=== PATIENT | female | born 1945 | race Caucasian/White ===

== ENCOUNTER 2018-06-19 18:47 | Inpatient (IN) | payer MEDICARE, OTHER ==
[~2018-06-19] VITALS: Ht 167.6 cm; Wt 104.3 kg
--- NOTE | 2018-06-20 02:00 | NUR ---
PT ARRIVED TO FLOOR VIA EMS. PT ONLY RESPONSIVE TO PAINFUL STIMULI. PT IS UNABLE TO ANSWER QUESTIONS. UNABLE TO COMPLETE ADMISSION HISTORY. PT VITALS BP-163/62 P-76 RR-18 O2-95% T-99.9 FSBS-261. BED LOW CALL LIGHT WITHIN REACH. WILL CONTINUE TO MONITOR.
[2018-06-20 03:03] LABS: HEMATOCRIT 36.1 % (36.0-48.0); HEMOGLOBIN 12.2 g/dL (12-16); MCH 28.2 pg (26.0-34.0); MCHC 33.8 g/dL (31.0-37.0); MCV 83.6 fL (80.0-100.0); MEAN PLATELET VOLUME 10.4 fL (7.4-10.4); PLATELET COUNT 257 10x3/uL (130-400); RBC 4.32 10x6/uL (4.00-5.40); RDW 12.6 % (11.5-14.5); WBC 8.8 10x3/uL (4.8-10.8)
--- NOTE | 2018-06-20 03:19 | NUR ---
RN NOTE: PATIENT RESTING COMFORTABLY IN BED. RESPIRATIONS ARE EVEN AND UNLABORED. NO S/S OF DISTRESS. CALL LIGHT WITHIN REACH. WILL CPOC.
[2018-06-20 03:20] LABS: ALBUMIN 2.4 g/dL (3.4-5.0); BILIRUBIN - TOTAL 0.77 mg/dL (0.2-1.3); CALCIUM 8.5 mg/dL (8.5-10.1); CARBON DIOXIDE 23.2 mmol/L (21.0-32.0); POTASSIUM - SERUM 3.2 mmol/L (3.5-5.1); PROTEIN - SERUM 6.5 g/dL (6.4-8.2)
[2018-06-20] MEDS ORDERED: CATAPRES0.1 MG PO (03:45)
[2018-06-20 03:46] VITALS: BP 163/62; BMI 37.2
[2018-06-20] MEDS ORDERED: HYDRALAZINE HCL25 MG (03:47)
[2018-06-20] MEDS ORDERED: CALCIUM 500 +1 EAC3 PO (03:47)
[2018-06-20] MEDS ORDERED: ZYRTEC10 MG PO (03:48)
[2018-06-20] MEDS ORDERED: DETROL LA4 MG PO (03:48)
[2018-06-20] MEDS ORDERED: BASAGLAR K100 UNIT/1 SQ (03:52)
[2018-06-20] MEDS ORDERED: GLUCOPHAGE1000 MG PO (03:53)
[2018-06-20] MEDS ORDERED: K-DUR20 MEQ PO (03:56)
[2018-06-20] MEDS ORDERED: MICARDIS40 MG PO (03:59)
[2018-06-20] MEDS ORDERED: PRAVACHOL40 MG PO (03:59)
[2018-06-20] MEDS ORDERED: ULTRAM50 MG PO (04:01)
[2018-06-20] MEDS ORDERED: HUMALOG 30100 UNITS/ SC (04:02)
--- NOTE | 2018-06-20 05:18 | NUR ---
CALLED DR. SALAS REGARDING PT. PT ONLY RESPONSIVE TO PAINFUL STIMULI AND THEN MOANS. PT UNABLE TO TALK OR ANSWER QUESTIONS. PT RESPIRATIONS SNORING LIKE AT TIMES. PT VITALS STABLE AT THIS TIME. BED LOW CALL LIGHT WITHIN REACH WILL CONTINUE TO MONITOR.
[2018-06-20 05:20] VITALS: BP 132/57
--- NOTE | 2018-06-20 05:27 | NUR ---
CALLED DR. SALAS REGARDING PT. TOLD HIM PT WAS ONLY RESPONSIVE TO PAINFUL STIMULI AND RESPONSE WAS MOANING AND THAT PT COULD NOT ANSWER QUESTIONS OR TALK. RESPIRATIONS SOUND SNORING LIKE AT TIMES. DR. SALAS STATED HE WOULD EVALUATE PT IN MORNING WHEN HE GOT HERE.
--- NOTE | 2018-06-20 07:30 | NUR ---
RECEIVED POSITIONED ON BACK WITH 02 ON VIA N/C AT 2 L/M. RESP SHALLOW BUT EVEN AND UNLABORED. PT IS REPONSIVE ONLY TO PAINFUL STIMULI. MOANS WHEN SHE IS TOUCHED ON LEGS OR RIGHT ARM. DUTTON PATENT AND DRAINING DARK [place] COLORED URINE. BED IN LOWEST POSITION, SIDERAILS UP X 2 AND CALL LIGHT IN REACH. WILL CONTINUE POC
--- NOTE | 2018-06-20 08:50 | NUR ---
X-RAY DONE AT BS. WILL CONT. PLAN OF CARE.
[2018-06-20 09:07] LABS: APTT 25.1 SECONDS (22.8-39.4); INR 1.14 (0.85-1.17); MAGNESIUM - SERUM 1.2 mg/dL (1.8-2.4); PROTIME 14.1 SECONDS (11.6-15.0)
[2018-06-20 09:25] LABS: EOSINOPHILS 1 % (0-7); LYMPHOCYTES 9 % (15-50); MONOCYTES 10 % (2-11); NEUTROPHILS 80 % (40-80); PLATELET ESTIMATE NORMAL; ROULEAUX OCC
--- NOTE | 2018-06-20 10:00 | NUR ---
PT IS NOW WAKING TO HER NAME CALLED. WHEN ASKED HER NAME WILL ANSWER CORRECTLY BUT NO OTHER VERBAL COMMUNICATION. SCOTTIE.
[2018-06-20 11:03] VITALS: BP 137/59
--- NOTE | 2018-06-20 11:30 | NUR ---
HERE AND SIGNED FORM FOR LUMBAR PUNCTURE THIS AFTERNOON.
[2018-06-20 12:14] VITALS: Ht 167.6 cm; Wt 104.3 kg
--- NOTE | 2018-06-20 15:02 | NUR ---
PT OPENS EYES TO NAME NOW. WHEN ASKED IF SHE KNEW WHERE SHE IS WHE ANSWERED [facility] IN [place]. ORIENTED PT TO PLACE. UNABLE TO ANSWER ANY FURTHER QUESTIONS. WHEN HER TOUCHED HER HAND AND TOLD HIM HE WAS THERE, SHE STARTED CRYING BUT QUIETENED QUICKLY. CONTINUE POC,
--- NOTE | 2018-06-20 15:30 | NUR ---
TO IR VIA BED FOR LUMBAR PUNCTURE
[2018-06-20 15:45] VITALS: BP 136/37
--- NOTE | 2018-06-20 16:39 | NUR ---
RETURNED TO ROOM VIA BED. PT IS A/A/OX3. ASKING HOW AND WHY SHE IS HERE AT HOSPITAL. TALKING TO HER AND SMILING. NO REQUESTS.
[2018-06-20 16:53] LABS: ERYTHROCYTE SEDIMENTATION RATE 15 mm/hr (0-30)
[2018-06-20 16:57] LABS: GLUCOSE - CSF 154 MG/DL (40-75); PROTEIN - CSF 47 MG/DL (12-60)
[2018-06-20 17:09] LABS: APPEARANCE - CSF CLEAR; RBC - CSF 1 cmm (0-0)
--- NOTE | 2018-06-20 17:15 | NUR ---
IV INFILTRATED. RIGHT HAND IV DC'D WITH TIP INTACT. RESTARTED IN LEFT HAND X 1 ATTEMPT WITH 22 GAUGE. TOLERATED WELL.
--- NOTE | 2018-06-20 20:30 | NUR ---
RESUMING PT CARE. PT IS LAYING IN BED WITH EYES CLOSED RESTING COMFORTABLY. RESPIRATIONS EVEN AND UNLABORED. BED IN LOWEST POSITION WITH CALL LIGHT IN REACH. SIDE RAILS UP X 2. WILL CONTINUE TO MONITOR PT AND FOLLOW PLAN OF CARE.
[2018-06-20 20:37] VITALS: BP 131/55
[2018-06-21 00:56] VITALS: BP 147/53
--- NOTE | 2018-06-21 03:30 | NUR ---
PT IS LAYING IN BED RESTING COMFORTABLY WITH EYES CLOSED. RESPIRATIONS EVEN AND UNLABORED. NO SIGNS OF DISTRESS. BED IN LOW POSITION WITH CALL LIGHT IN REACH. SIDE RAILS UP X 2. WILL CONTINUE TO MONITOR PT AND FOLLOW PLAN OF CARE.
[2018-06-21 03:49] VITALS: BP 128/47
--- NOTE | 2018-06-21 08:33 | NUR ---
RECIEVED BEDSIDE REPORT. AM ROUNDS COMPLETED. VSS, AAOX2. NO S/S OF RESP DISTRESS, RR UNLABORED. PT STATES SHE WANTS TO SIT UP IN CHAIR, BUT PT IS CONFUSED. OFFERED TO SIT PT UP IN BED. PT STATES SHE IS COMFORTABLE AT THIS TIME. NURSING STUDENTS IN PT ROOM AT THIS TIME. WILL CPOC. CL IN REACH, BED IN LOW.
[2018-06-21 09:15] VITALS: BP 147/59
[2018-06-21 10:09] LABS: APPEARANCE HAZY (CLEAR); BILIRUBIN NEGATIVE (NEGATIVE); COLOR YELLOW (YELLOW); GLUCOSE NEGATIVE (NEGATIVE); KETONE SMALL mg/dL (NEGATIVE); NITRITE NEGATIVE (NEGATIVE); PROTEIN 1+ mg/dL (NEGATIVE); SPECIFIC GRAVITY 1.015 (1.005-1.020); UROBILINOGEN NORMAL (NORMAL); WHITE CELLS - URINE >50 /hpf (0-5)
[2018-06-21 10:10] LABS: BACTERIA FEW /hpf (NONE SEEN); EPITHELIAL CELLS OCC /hpf (0-5); MUCUS <1+ /lpf (NONE SEEN); RED CELLS - URINE OCC /hpf (0-5)
--- NOTE | 2018-06-21 13:00 | NUR ---
NOTIFIED FOOD AND NUTRITION SERVICES SUPERVISOR ABOUT PT NPO STATUS. [facility] PT FOOD AND NUTRITION SERVICES SUPERVISOR STATES PT CAN RESUME REGULAR DIET. VANILLA PUDDING AND DIET COKE GIVEN TO PT AT THIS TIME. WILL CPOC.
--- NOTE | 2018-06-21 15:28 | NUR ---
PT ON SCD. PT STATES UPPER THIGH HURTS A LITTLE. ASSESSED THE AREA. PT DENIES NEEDS FOR PAIN MEDS AT THIS TIME. WILL CTM.
--- NOTE | 2018-06-21 17:35 | MORECARE ---
CASE MANAGEMENT DISCHARGE SUMMARY PATIENT: ELVIRA PADGETT UNIT: [id number] ADM DATE: 06/20/18 AGE: 72 : 43 SEX: F ROOM/BED: D.2101 AUTHOR: RAVINDRA PANDEY PHYSICIAN: REFERRING PHYSICIAN: JUAN SALAS MD DATE OF SERVICE: 06/21/18 Discharge Plan Patient Name: ELVIRA PADGETT Facility[facility] : 1945 Planned Disposition: Home Anticipated Discharge Date: Discharge Date: Expected LOS: Initial Reviewer: [id number] Initial Review Date: 06/20/2018 Generated: 06/21/18 6:35 pm DCPIA - Discharge Planning Initial Assessment Updated by [id number]: Erick Mason on 06/21/18 5:31 pm * Is the patient Alert and Oriented? Yes * How many steps to enter\exit or inside your home? * PCP DR. LEYVA IN [place] * Pharmacy [facility] IN [place] OR [facility] * Preadmission Environment [facility] * Facility Name [facility] [phone] * ADLs Partial Dependent * Partial ADLs (Assistance needed) Ambulation Medication Management Transfers * Equipment Cane Walker * Other Equipment [employer] [facility] IN [place] * List name and contact numbers for known caregivers / representatives who currently or will assist patient after discharge: ANGÉLICA PADGETT, SPOUSE, ANGÉLICA PADGETT, SON, CATALINA PADGETT, DTR, * Verbal permission to speak to the caregivers and representatives has been obtained from the patient. Yes * Community resources currently utilized None * Please name any agencies selected above. NONE * Additional services required to return to the preadmission environment? Yes * Can the patient safely return to the preadmission environment? Yes * Has this patient been hospitalized within the prior 30 days at any hospital? Yes Patient Name: ELVIRA PADGETT Page [id number] at 1738 All edits/amendments must be made on the electronic document DICTATION DATE: 06/21/18 3538 EYE PHYSICIAN: VINCENT 06/21/18 1735 RPT#: [id number] DC DATE: STATUS: ADM IN [facility] [address] [place] [address] END OF REPORT
--- NOTE | 2018-06-21 17:47 | MORECARE ---
CASE MANAGEMENT DISCHARGE SUMMARY PATIENT: ELVIRA PADGETT UNIT: [id number] ADM DATE: 06/20/18 AGE: 72 : 43 SEX: F ROOM/BED: D.2109 AUTHOR: KATHERINDOC PHYSICIAN: REFERRING PHYSICIAN: JUAN SALAS MD DATE OF SERVICE: 06/21/18 Discharge Plan Patient Name: ELVIRA PADGETT Facility: [facility]:[place] : 1945 Planned Disposition: Home Anticipated Discharge Date: Discharge Date: Expected LOS: Initial Reviewer: [email or web address] Initial Review Date: 06/20/2018 Generated: 06/21/18 6:47 pm Comments DCP- Discharge Planning Updated by [id number]: Erick Mason on 06/21/18 4:[address] Patient Name: ELVIRA PADGETT Admission Status: Elective Accout number: [id number] Admission Date: 06-20-2018 : 1945 Admission Diagnosis: Attending: JUAN SALAS Current LOS: 1 Anticipated DC Date: Planned Disposition: Home Primary Insurance: MEDICARE A & B Discharge Planning Comments: CM RECEIVED CALL FROM RENY OF [facility], , WHO LEFT MESSAGE INFORMING THAT PT WAS FROM [facility] AND ASKED FOR UPDATE. CM MET WITH PT AND SPOUSE IN ROOM TO DISCUSS DISCHARGE PLANNING AND NEEDS. ELVIRA PADGETT provided verbal consent to discuss current and ongoing needs with/in the presence of: SPOUSE, ANGÉLICA. PT REPORTS LIVING AT HOME INDEPENDENTLY WITH HER SPOUSE. PT HAS BEEN IN REHAB AT [facility] AND DOES NOT PLAN TO RETURN TO REHAB. PT HAS CANE AND WALKER AT HOME FROM [employer] [employer]. PT HAS NO OUTSIDE SERVICES ASSISTING IN THE HOME. CM DISCUSSED AVAILABILITY OF HOME HEALTH, REHAB SERVICES AND MEDICAL EQUIPMENT. PT DENIES DISCHARGE NEEDS AT THIS TIME, CM ASKED PT IF SHE WAS ABLE TO STAND AND WALK AT THIS TIME, PT DOES NOT THINK SHE CAN. CM EXPLAINED THAT IT MIGHT BE BEST TO KEEP REHAB OPTION OPEN, PT DECLINED AND AGAIN STATES SHE WILL BE GOING HOME AT DISCHARGE. PT'S SPOUSE REPORTS PT IS STILL SICK AND IT IS TOO EARLY TO TELL WHAT PT MIGHT NEED. SPOUSE REPORTS HE WILL BE TAKING PT HOME AT DISCHARGE. PT IS NOT RETURNING TO REHAB AT [facility]. PT PLANS TO DISCHARGE HOME WITH SPOUSE, HAS UNKNOWN DISCHARGE NEEDS AT THIS TIME. CM TO CONTINUE TO FOLLOW AND ASSIST NEEDED. Geochemist: Erick Mason DCPIA - Discharge Planning Initial Assessment Updated by [id number]: Erick Mason on 06/21/18 5:31 pm * Is the patient Alert and Oriented? Yes * How many steps to enter\exit or inside your home? * PCP DR. LEYVA IN [place] * Pharmacy [facility] IN [place] OR [facility] * Preadmission Environment Long-Term Facility * Facility Name [facility] [phone] * ADLs Partial Dependent * Partial ADLs (Assistance needed) Ambulation Medication Management Transfers * Equipment Cane Walker * Other Equipment [employer] [facility] IN [place] * List name and contact numbers for known caregivers / representatives who currently or will assist patient after discharge: ANGÉLICA PADGETT, SPOUSE, ANGÉLICA PADGETT, SON, CATALINA LORIN, DTR, * Verbal permission to speak to the caregivers and representatives has been obtained from the patient. Yes * Community resources currently utilized None * Please name any agencies selected above. NONE * Additional services required to return to the preadmission environment? Yes * Can the patient safely return to the preadmission environment? Yes * Has this patient been hospitalized within the prior 30 days at any hospital? Yes Last DP export: 06/21/18 4:35 p Patient Name: ELVIRA PADGETT Page [id number] at 1747 All edits/amendments must be made on the electronic document DICTATION DATE: 06/21/181745 LAUNDRY OPERATOR WASH ROOM: VINCENT 06/21/181745 RPT#: [id number] ID DATE: STATUS: ADM IN [facility] [address] [place] [address] END OF REPORT
[2018-06-21 20:00] VITALS: BP 156/57
[2018-06-22 00:01] VITALS: BP 195/69
[2018-06-22 04:00] VITALS: BP 144/69
--- NOTE | 2018-06-22 05:22 | NUR ---
ADMINISTRATOR PESTICIDE AT BEDSIDE TO OBTAIN VITALS, CALL LIGHT IN REACH. WILL CONTINUE WITH PLAN OF CARE.
[2018-06-22 05:31] LABS: BASOPHILS 0.5 % (0-2); EOSINOPHILS 2.3 % (0-7); HEMATOCRIT 35.4 % (36.0-48.0); HEMOGLOBIN 11.8 g/dL (12-16); IMMATURE GRANULOCYTES 0.3 % (0-5); LYMPHOCYTES 23.6 % (15-50); MCHC 33.3 g/dL (31.0-37.0); MCV 83.9 fL (80.0-100.0); MONOCYTES 10.9 % (2-11); NEUTROPHILS 62.4 % (40-80); RBC 4.22 10x6/uL (4.00-5.40); RDW 12.7 % (11.5-14.5); WBC 6.2 10x3/uL (4.8-10.8)
[2018-06-22 05:34] LABS: PLATELET COUNT 201 10x3/uL (130-400)
[2018-06-22 05:38] LABS: CALC OSMOLALITY 288 mosm/kg (275-300); CALCIUM 8.5 mg/dL (8.5-10.1); CARBON DIOXIDE 23.6 mmol/L (21.0-32.0); CHLORIDE - SERUM 106 mmol/L (98-107); CREATININE - SERUM 0.7 mg/dL (0.6-1.3); SODIUM 142 mmol/L (136-145); UREA NITROGEN 19 mg/dL (7-18); eGFR NON AFRICAN AMERICAN 87 mL/min (90-120)
[2018-06-22 05:39] LABS: GLUCOSE 174 mg/dL (74-106)
--- NOTE | 2018-06-22 07:40 | NUR ---
PT TALKING TO NO ONE WHEN I ENTERED ROOM. CARYING FULL CONVERSATION, NO ONE ELSE IN ROOM. STATES SHE WASN'T TALKING AT ALL. PT OBVIOUSLY CONFUSED. CL IN REACH. SRX2.
[2018-06-22 08:00] VITALS: BP 192/76
[2018-06-22 11:22] LABS: ANA REFLEX - DIRECT Negative (Negative)
[2018-06-22 11:57] VITALS: BP 202/70
--- NOTE | 2018-06-22 12:27 | NUR ---
REHAB PRESCREENING Rehab referral received and chart reviewed. Work up still in progress pending ID consult and PT evaluation. Patient is still very hypertensive with most recent documented BP 202/70. Rehab will follow for now. Thank you for this referral! Isaura Humphrey, COMPUTER SUPPORT SPECIALIST INSTRUCTOR Rehab [facility]
--- NOTE | 2018-06-22 13:48 | NUR ---
CAN NOT GIVE MICARDIS AT THIS TIME. CALLED [facility] AND THEY SAID THEY WILL BRING IT SOON.
--- NOTE | 2018-06-22 14:25 | NUR ---
PT FAMILY REPORTS THIER HALUCINATIONS HAVE BEEN WORSE. STATES THAT THE PT IS TALKING TO PEOPLE/OBJECTS THAT AREN'T THERE. STATES THAT THIS USALLY MEANS SHE WILL BE GETTING WORSE SOON. WILL LET DR KNOW WHEN HE SEES HER LATER. PT IS PLESANTLY CONFUSED.
[2018-06-22 15:03] VITALS: BP 161/68
--- NOTE | 2018-06-22 15:56 | NUR ---
RESTING QUIETLY EYES CLOSED RESP UNLABORED NAD NOTED AT THIS TIME
--- NOTE | 2018-06-22 16:44 | MORECARE ---
CASE MANAGEMENT DISCHARGE SUMMARY PATIENT: ELVIRA PADGETT UNIT: [id number] ADM DATE: 06/20/18 AGE: 72 : 43 SEX: F ROOM/BED: D.2106 AUTHOR: KATHERINDOC PHYSICIAN: REFERRING PHYSICIAN: JUAN SALAS MD DATE OF SERVICE: 06/22/18 Discharge Plan Patient Name: ELVIRA PADGETT Facility: [facility]:[place] : 1945 Planned Disposition: Inpatient Rehab Anticipated Discharge Date: 06/25/18 Discharge Date: Expected LOS: 5 Initial Reviewer: [email or web address] Initial Review Date: 06/20/2018 Generated: 06/22/18 5:44 pm Comments DCP- Discharge Planning Updated by [id number]: Erick Mason on 06/21/18 4:[address] Patient Name: ELVIRA PADGETT Admission Status: Elective Accout number: [id number] Admission Date: 06-20-2018 : 1945 Admission Diagnosis: Attending: JUAN SALAS Current LOS: 1 Anticipated DC Date: Planned Disposition: Home Primary Insurance: MEDICARE A & B Discharge Planning Comments: CM RECEIVED CALL FROM RENY OF [facility], , WHO LEFT MESSAGE INFORMING THAT PT WAS FROM [facility] AND ASKED FOR UPDATE. CM MET WITH PT AND SPOUSE IN ROOM TO DISCUSS DISCHARGE PLANNING AND NEEDS. ELVIRA PADGETT provided verbal consent to discuss current and ongoing needs with/in the presence of: SPOUSE, ANGÉLICA. PT REPORTS LIVING AT HOME INDEPENDENTLY WITH HER SPOUSE. PT HAS BEEN IN REHAB AT [facility] AND DOES NOT PLAN TO RETURN TO REHAB. PT HAS CANE AND WALKER AT HOME FROM [facility]. PT HAS NO OUTSIDE SERVICES ASSISTING IN THE HOME. CM DISCUSSED AVAILABILITY OF HOME HEALTH, REHAB SERVICES AND MEDICAL EQUIPMENT. PT DENIES DISCHARGE NEEDS AT THIS TIME, CM ASKED PT IF SHE WAS ABLE TO STAND AND WALK AT THIS TIME, PT DOES NOT THINK SHE CAN. CM EXPLAINED THAT IT MIGHT BE BEST TO KEEP REHAB OPTION OPEN, PT DECLINED AND AGAIN STATES SHE WILL BE GOING HOME AT DISCHARGE. PT'S SPOUSE REPORTS PT IS STILL SICK AND IT IS TOO EARLY TO TELL WHAT PT MIGHT NEED. SPOUSE REPORTS HE WILL BE TAKING PT HOME AT DISCHARGE. PT IS NOT RETURNING TO REHAB AT [facility]. PT PLANS TO DISCHARGE HOME WITH SPOUSE, HAS UNKNOWN DISCHARGE NEEDS AT THIS TIME. CM TO CONTINUE TO FOLLOW AND ASSIST NEEDED. Hydrate Thickener Operator: Erick Mason DCPIA - Discharge Planning Initial Assessment Updated by [id number]: Erick Mason on 06/21/18 5:31 pm * Is the patient Alert and Oriented? Yes * How many steps to enter\exit or inside your home? * PCP DR. LEYVA IN [place] * Pharmacy [email or web address] IN [place] OR [facility] * Preadmission Environment [facility] Facility * Facility Name [facility] [phone] * ADLs Partial Dependent * Partial ADLs (Assistance needed) Ambulation Medication Management Transfers * Equipment Cane Walker * Other Equipment [employer] [facility] IN [place] * List name and contact numbers for known caregivers / representatives who currently or will assist patient after discharge: ANGÉLICA PADGETT, SPOUSE, ANGÉLICA PADGETT, SON, CATALINA PADGETT, DTR, * Verbal permission to speak to the caregivers and representatives has been obtained from the patient. Yes * Community resources currently utilized None * Please name any agencies selected above. NONE * Additional services required to return to the preadmission environment? Yes * Can the patient safely return to the preadmission environment? Yes * Has this patient been hospitalized within the prior 30 days at any hospital? Yes External Providers External Provider: OTHER-OTHER Next Contact Date: 06/25/2018 Service Request Date: Service Type: Resolution: Reviewer: Comments: Last DP export: 06/21/18 4:47 p Patient Name: ELVIRA PADGETT Page 29939 at 1644 All edits/amendments must be made on the electronic document DICTATION DATE: 06/22/181643 AIRCRAFT LOADMASTER SUPERINTENDENT: VINCENT 06/22/181643 RPT#: [id number] DC DATE: STATUS: ADM IN [facility] [address] [place] [address] END OF REPORT
--- NOTE | 2018-06-22 16:58 | MORECARE ---
CASE MANAGEMENT DISCHARGE SUMMARY PATIENT: ELVIRA PADGETT UNIT: [id number] ADM DATE: 06/20/18 AGE: 72 : 43 SEX: F ROOM/BED: D.6925 AUTHOR: KATHERIN,DOC PHYSICIAN: REFERRING PHYSICIAN: JUAN SALAS MD DATE OF SERVICE: 06/22/18 Discharge Plan Patient Name: ELVIRA PADGETT Facility: [facility]:[place] : 1945 Planned Disposition: Inpatient Rehab Anticipated Discharge Date: 06/25/18 Discharge Date: Expected LOS: 5 Initial Reviewer: [id number] Initial Review Date: 06/20/2018 Generated: 06/22/18 5:58 pm Comments DCP- Discharge Planning Updated by [id number]: Erick Mason on 06/22/18 3:[address] Patient Name: ELVIRA PADGETT Encounter No: [id number] : 1945 Primary Insurance: MEDICARE A & B Anticipated DC Date: 06-25-2018 Planned Disposition: Inpatient Rehab External Planned Provider: [facility] DCP follow-up note: CM RECEIVED ORDER FOR INPATIENT REHAB PRESCREENING. CM MET WITH PT AND SPOUSE IN ROOM TO DISCUSS DISCHARGE PLANNING AND NEEDS. CM DISCUSSED THERAPY RESULTS, ORDER AND AVAILABILITY OF REHAB PROVIDERS AND LOCATIONS. PT AND SPOUSE WOULD LIKE REFERRAL TO [facility] IN[facility] REH[facility] PT'S HOME IS ABOUT 6 MILES FROM THE FACILITY. PT'S SPOUSE AGAIN VOICED THAT PT IS STILL TOO SICK TO LEAVE AND NEEDS FURTHER TREATMENT. CM EXPLAINED IMPORTANTANCE OF DISCHARGE PLANNING AND PROCESS OF ASSESSMENT BY REHAB. PT AND SPOUSE BOTH IN AGREEMENT WITH REFERRAL TO [facility] IN[facility]IENT RE[facility]. IMPORTANT MESSAGE FROM MEDICARE PROVIDED AND DISCUSSED. CM CALLED [facility], , SPOKE TO THAIS MONTES, WHO INFORMED CM THAT THEY WILL NOT HAVE A DOCTOR AVAILBLE FOR SCREENING UNTIL 06-25-18. CM FAXED REFERRAL FOR REHAB SCREENING TO [phone]. CM WAITING SCREENING AND ADMISSION DETERMINATION FROM [facility] ON 06-25-18. Erick Mason, CASE MANAGEMENT DCP- Discharge Planning Updated by [id number]: Erick Mason on 06/21/18 4:[address] Patient Name: ELVIRA PADGETT Admission Status: Elective Accout number: [id number] Admission Date: 06-20-2018 : 1945 Admission Diagnosis: Attending: JUAN SALAS Current LOS: 1 Anticipated DC Date: Planned Disposition: Home Primary Insurance: MEDICARE A & B Discharge Planning Comments: CM RECEIVED CALL FROM RENY OF [facility], , WHO LEFT MESSAGE INFORMING THAT [facility] AND ASKED FOR UPDATE. CM MET WITH PT AND SPOUSE IN ROOM TO DISCUSS DISCHARGE PLANNING AND NEEDS. ELVIRA PADGETT provided verbal consent to discuss current and ongoing needs with/in the presence of: SPOUSE, ANGÉLICA. PT REPORTS LIVING AT HOME INDEPENDENTLY WITH HER SPOUSE. PT HAS BEEN IN REHAB AT [facility] AND DOES NOT PLAN TO RETURN TO REHAB. PT HAS CANE AND WALKER AT HOME FROM [facility]. PT HAS NO OUTSIDE SERVICES ASSISTING IN THE HOME. CM DISCUSSED AVAILABILITY OF HOME HEALTH, REHAB SERVICES AND MEDICAL EQUIPMENT. PT DENIES DISCHARGE NEEDS AT THIS TIME, CM ASKED PT IF SHE WAS ABLE TO STAND AND WALK AT THIS TIME, PT DOES NOT THINK SHE CAN. CM EXPLAINED THAT IT MIGHT BE BEST TO KEEP REHAB OPTION OPEN, PT DECLINED AND AGAIN STATES SHE WILL BE GOING HOME AT DISCHARGE. PT'S SPOUSE REPORTS PT IS STILL SICK AND IT IS TOO EARLY TO TELL WHAT PT MIGHT NEED. SPOUSE REPORTS HE WILL BE TAKING PT HOME AT DISCHARGE. PT IS NOT RETURNING TO REHAB AT [facility]. PT PLANS TO DISCHARGE HOME WITH SPOUSE, HAS UNKNOWN DISCHARGE NEEDS AT THIS TIME. CM TO CONTINUE TO FOLLOW AND ASSIST NEEDED. Core Manager: Erick Mason DCPIA - Discharge Planning Initial Assessment Updated by [id number]: Erick Mason on 06/21/18 5:31 pm * Is the patient Alert and Oriented? Yes * How many steps to enter\exit or inside your home? * PCP DR. LEYVA IN [place] * Pharmacy [facility] IN [place] OR [facility] * Preadmission Environment Shelter Facility * Facility Name [facility] [place] [phone] * ADLs Partial Dependent * Partial ADLs (Assistance needed) Ambulation Medication Management Transfers * Equipment Cane Walker * Other Equipment [facility] IN [place] * List name and contact numbers for known caregivers / representatives who currently or will assist patient after discharge: ANGÉLICA PADGETT, SPOUSE, ANGÉLICA PADGETT, SON, CATALINA PADGETT, DTR, * Verbal permission to speak to the caregivers and representatives has been obtained from the patient. Yes * Community resources currently utilized None * Please name any agencies selected above. NONE * Additional services required to return to the preadmission environment? Yes * Can the patient safely return to the preadmission environment? Yes * Has this patient been hospitalized within the prior 30 days at any hospital? Yes Coverage Notice Reviewer: [id number] Jay Mason Notice Issued Date-Time: 06/22/2018 15:00 Notice Type: IM Discharge Notice Notice Delivered To: Family Member Relationship to Patient: Spouse Rotary Dryer Operator Name: ANGÉLICA PADGETT Delivery Method: HAND - Hand Delivered Es Days: Prior Verbal Notification: Recipient Understood Notice: Yes Recipient Signature: Yes Med Rec Note Co-signed by Attending: Coverage Notice Comment: Last DP export: 06/22/18 3:44 p Patient Name: ELVIRA PADGETT Page 57256 at 1658 All edits/amendments must be made on the electronic document DICTATION DATE: 06/22/181656 FOOD TRAY ASSEMBLER: VINCENT 06/22/181656 RPT#: [id number] DC DATE: STATUS: ADM IN [facility] [address] [place] [address] END OF REPORT
--- NOTE | 2018-06-22 17:33 | NUR ---
ASSISTED PT TO THE BATHROOM. PT PULLED OUT I/V STATING "IT WAS ON THE WRONG FINGER". PT UNSTEADY GATE, X2 ASSIST. CL IN REACH. SRX2. BED ALARM ON. AT BEDSIDE.
--- NOTE | 2018-06-22 20:55 | NUR ---
RESUMING PT CARE. PT IS ALERT LAYING IN BED WITH NO C/O VOICED AT THIS TIME. IS AT BEDSIDE. BED IN LOW POSITION WITH CALL LIGHT IN REACH. SIDE RAILS UP X 2. WILL CONTINUE TO MONITOR PT AND FOLLOW PLAN OF CARE.
[2018-06-22 22:08] VITALS: BP 154/89
--- NOTE | 2018-06-23 01:30 | NUR ---
PT IS ALERT AND VERY CONFUSED. RESPIRATIONS EVEN AND UNLABORED. NO SIGNS OF DISTRESS. BED IN LOW POSITION WITH CALL LIGHT IN REACH. SIDE RAILS UP X 2. WILL CONTINUE TO MONITOR PT AND FOLLOW PLAN OF CARE.
--- NOTE | 2018-06-23 02:30 | NUR ---
A IV WAS PLACED IN THE RIGHT FOREARM WITH SUCCESS.
[2018-06-23 05:04] LABS: BASOPHILS 0.3 % (0-2); EOSINOPHILS 1.1 % (0-7); HEMATOCRIT 35.2 % (36.0-48.0); HEMOGLOBIN 11.7 g/dL (12-16); IMMATURE GRANULOCYTES 0.2 % (0-5); MCH 27.9 pg (26.0-34.0); MCHC 33.2 g/dL (31.0-37.0); MCV 83.8 fL (80.0-100.0); MEAN PLATELET VOLUME 11.1 fL (7.4-10.4); MONOCYTES 13.5 % (2-11); NEUTROPHILS 62.9 % (40-80); PLATELET COUNT 214 10x3/uL (130-400); RDW 12.8 % (11.5-14.5); WBC 6.1 10x3/uL (4.8-10.8)
[2018-06-23 05:17] LABS: CALCIUM 8.2 mg/dL (8.5-10.1); CARBON DIOXIDE 25.4 mmol/L (21.0-32.0); CHLORIDE - SERUM 105 mmol/L (98-107); CREATININE - SERUM 0.7 mg/dL (0.6-1.3); SODIUM 142 mmol/L (136-145); eGFR NON AFRICAN AMERICAN 87 mL/min (90-120)
[2018-06-23 05:26] LABS: CALC OSMOLALITY 291 mosm/kg (275-300); GLUCOSE 237 mg/dL (74-106); UREA NITROGEN 14 mg/dL (7-18)
[2018-06-23 05:27] LABS: POTASSIUM - SERUM 2.9 mmol/L (3.5-5.1)
--- NOTE | 2018-06-23 05:49 | NUR ---
PT CONFUSED, BUT CURRENTLY IN BED. ROMEL ALARM ON. PT VSS, RR UNLABORED, NO S/S OF DISTRESS. WILL CTM. CL IN REACH, BED IN LOW, SR UP X2. WILL CPOC.
[2018-06-23 07:42] VITALS: BP 169/65
--- NOTE | 2018-06-23 09:42 | NUR ---
CAN HEAR PT YELLING AT FOR SOMEHTHING. WHENT IN, PT VISABLLY UPSET. STATES SHES TIRED OF BEING IN THIS ROOM AND JUST WANTS TO GET OUT OF THE HOSPITAL. TALKED WITH PATIENT, CALMED HER. WILL SEE ABOUT GETTING HER SOMETHING FOR CONFUSION/ANXIETY.
[2018-06-23 11:51] VITALS: BP 183/70
--- NOTE | 2018-06-23 16:00 | NUR ---
PT STATES THAT LAST NIGHT THEIR WERE 4 WOMEN IN HER ROOM SMOKING AND DRINKING. BUT THAT IT WAS FINE, JUST RUDE THEY LEFT THE ROOM A MESS. PT STILL OBVIOUSLY CONFUSED. CL IN REACH. SRX2. BED ALARM ON .
--- NOTE | 2018-06-23 18:06 | NUR ---
PT AT BEDSIDE. HAS YELLED AT FOR "CHEATING" (PT IS OBIOUSLY CONFUSED). UNHAPPY TO BE HERE BUT NOT ENTIRELY UNPLESANT WITH ME IN PARTICULAR. CL IN REACH. SRX2.
[2018-06-23 20:00] VITALS: BP 163/55
--- NOTE | 2018-06-23 20:07 | NUR ---
INITIAL ROUNDS COMPLETED AT 191 HRS. PT DENIED ANY DISCOMFORT. PT ALERT,ORIENTED TO PERSON ONLY. PT ACCUSING OF NOT CARING FOR HER. EMOTIONAL SUPPORT GIVEN. ASSESSMENT COMPLETED AT 1939 HRS. VSS. IV TO RFA SL. LUNGS DIMINISHED IN BASES BILAT. ACTIVE BS IN ALL 4 QUADRANTS. BUTTOCK SLIGHTLY RED. DUTTON DRAINING YELLOW URINE. SPOUSE AT BEDSIDE. SR UP X2, CALL LIGHT WITHIN REACH AND BED ALARM ON.
--- NOTE | 2018-06-23 21:36 | NUR ---
PM [id number]. 2 UNITS REGULAR. INSULIN GIVEN SUB-Q TO UPPER L ARM. 2ND DOSE OF KCL 20 MEQ GIVEN. PT SWALLOWED WITHOUT DIFFICULTY. PT REPOSITIONED IN BED FOR COMFORT. SR UP X2, CALL LIGHT WITHIN REACH.
[2018-06-24] VITALS (7 sets, daily range): BP systolic 146–198; BP diastolic 43–84
--- NOTE | 2018-06-24 00:16 | NUR ---
BP 192/71 PER RETAIL BUSINESS DEVELOPMENT MANAGER. RECHECKED MANUALLY TO L ARM WITH 170/84. PT DENIES ANY DISCOMFORT. SR UP X2, CALL LIGHT WITHIN REACH.
--- NOTE | 2018-06-24 02:27 | NUR ---
PT RESTING WITH EYES CLOSED. RESP EVEN AND REGULAR. SR UP X2, CALL LIGHT WITHIN REACHH AND BED ALARM ON.
[2018-06-24 04:50] LABS: BASOPHILS 0.3 % (0-2); HEMOGLOBIN 11.4 g/dL (12-16); IMMATURE GRANULOCYTES 0.5 % (0-5); LYMPHOCYTES 26.1 % (15-50); MCH 28.1 pg (26.0-34.0); MCHC 33.5 g/dL (31.0-37.0); MEAN PLATELET VOLUME 11.3 fL (7.4-10.4); MONOCYTES 11.3 % (2-11); NEUTROPHILS 59.8 % (40-80); PLATELET COUNT 197 10x3/uL (130-400); RBC 4.05 10x6/uL (4.00-5.40); RDW 12.8 % (11.5-14.5)
[2018-06-24 04:58] LABS: CALC OSMOLALITY 287 mosm/kg (275-300); CALCIUM 8.4 mg/dL (8.5-10.1); CARBON DIOXIDE 24.1 mmol/L (21.0-32.0); CHLORIDE - SERUM 106 mmol/L (98-107); CREATININE - SERUM 0.6 mg/dL (0.6-1.3); GLUCOSE 211 mg/dL (74-106); POTASSIUM - SERUM 3.7 mmol/L (3.5-5.1); SODIUM 142 mmol/L (136-145); UREA NITROGEN 11 mg/dL (7-18); eGFR NON AFRICAN AMERICAN > 90 mL/min (90-120)
--- NOTE | 2018-06-24 06:41 | NUR ---
PT RESTED WELL DURING SHIFT. SR PER CM. DENIED ANY DISCOMFORT. AM FSBS 211. 4 UNITS REG INSULIN GIVEN SUB-Q TO UPPER L ARM PER S/S. NEEDS MET; WILL CONTINUE TO MONITOR.
--- NOTE | 2018-06-24 07:27 | NUR ---
PT ASLEEP, NOT AT BEDSIDE. B/P ELEVATED, WILL TRY AND GET HER PRN B/P MEDS TODAY. CL INREACH. SRX2. ROMEL ALARM ON.
--- NOTE | 2018-06-24 09:58 | NUR ---
RESTS IN BED WITH EYES CLOSED. CALL LIGHT IN REACH. WILL MONITOR NEEDS.
--- NOTE | 2018-06-24 18:39 | NUR ---
PT ON COMMODE. AT BEDSIDE. WILL USE BATHROOM CL WHEN NEEDED. WILL ASSIST BACK TO BED. CL IN REACH. SRX2.
--- NOTE | 2018-06-24 19:30 | NUR ---
INITIAL ROUNDS COMPLETED. NO DISTRESS NOTED. SPOUSE AT BEDSIDE. BLADDER TRAINING INITIATED. CALL LIGHT WITHIN REACH.
--- NOTE | 2018-06-24 21:43 | NUR ---
ASSESSMENT COMPLETED AT 1950 HRS. VSS. SR PER CM HR 61. PT ALERT AND ORIENTED TO PERSON,PLACE. REORIENTED TO TIME AND SITUATION. LUNGS DIMINISHED IN BASES BILAT. IV TO RFA SL. [place]. BUTTOCKS SLIGHTLY RED. PM MED GIVEN. PM FSBS 215. 4 UNITS REG INSULIN GOVEN SUB-Q TO UPPER L ARM. PM SNACK SERVED. DUTTON UNCLAMPED AT THAT TIME. PT CURRENTLY WATCHING TV. SR UP X2,CALL LIGHT WITHIN REACH AND BED ALARM ON.
--- NOTE | 2018-06-25 00:42 | NUR ---
DUTTON CLAMPED AT THIS TIME. ASSSITED TO BR. FLATUS NOTED. BED LINENS CHANGED. ASSISTED BACK TO BED. GAIT EVEN AND REGULAR. SR UP X2, CALL LIGHT WITHIN REACH AND BED ALARM.
[2018-06-25 01:24] VITALS: BP 165/69
--- NOTE | 2018-06-25 02:20 | NUR ---
PT AWAKE; DENIES ANY DISCOMFORT. DUTTON UNCLAMPED AT THIS TIME. CALL LIGHT WITHIN REACH.
--- NOTE | 2018-06-25 04:12 | NUR ---
PT RESTING WITH EYES CLOSED. RESP EVEN AND REGULAR. SR UP X2, CALL LIGHT WITHIN REACH.
[2018-06-25 05:02] VITALS: BP 123/51
--- NOTE | 2018-06-25 05:16 | NUR ---
PT DID NOT MEET CRITERIA FOR DUTTON AND PT REQUESTS TO HAVE IT REMOVED. NATO DC'D WITHOUT PROBLEMS. WILL CONTINUE TO MONITOR.
--- NOTE | 2018-06-25 06:16 | NUR ---
VSS THROUGHOUT NIGHT. PT DENIED ANY DISCOMFORT. NEEDS MET; WILL CONTINUE TO MONITOR.
[2018-06-25 06:37] LABS: CALC OSMOLALITY 288 mosm/kg (275-300); CALCIUM 8.5 mg/dL (8.5-10.1); CARBON DIOXIDE 21.8 mmol/L (21.0-32.0); CHLORIDE - SERUM 106 mmol/L (98-107); CREATININE - SERUM 0.7 mg/dL (0.6-1.3); GLUCOSE 229 mg/dL (74-106); SODIUM 142 mmol/L (136-145); UREA NITROGEN 10 mg/dL (7-18); eGFR NON AFRICAN AMERICAN 87 mL/min (90-120)
[2018-06-25 07:03] VITALS: BP 186/66
[2018-06-25 08:00] LABS: BASOPHILS 0.4 % (0-2); EOSINOPHILS 2.8 % (0-7); HEMATOCRIT 34.4 % (36.0-48.0); HEMOGLOBIN 11.2 g/dL (12-16); IMMATURE GRANULOCYTES 0.5 % (0-5); LYMPHOCYTES 23.1 % (15-50); MCH 27.8 pg (26.0-34.0); MCHC 32.6 g/dL (31.0-37.0); MCV 85.4 fL (80.0-100.0); MONOCYTES 10.5 % (2-11); NEUTROPHILS 62.7 % (40-80); PLATELET COUNT 249 10x3/uL (130-400); RBC 4.03 10x6/uL (4.00-5.40); WBC 7.8 10x3/uL (4.8-10.8)
--- NOTE | 2018-06-25 08:16 | NUR ---
ROUNDING DONE WITH PATIENT LAYING ON LEFT SIDE. WHEN AROUSED TO INTRODUCE MYSELF SHE REPLIED, YEAH AND WENT BACK TO SLEEP. ON HEART MONITOR SHOWINING SR, HR 62. RIGHT FA PIV SEEN WITH SALINE LOCK. ON EP, K+ IS 3.0, WILL COVER WITH SUPPLEMENTS. AT BEDSIDE AND WONDERING WHEN DISCHARGE WILL BE.
--- NOTE | 2018-06-25 08:24 | NUR ---
POTASSIUM GIVEN PER PROTOCOL. WILL ORDER RE-DRAW.
--- NOTE | 2018-06-25 10:11 | MORECARE ---
CASE MANAGEMENT DISCHARGE SUMMARY PATIENT: ELVIRA PADGETT UNIT: [id number] ADM DATE: 06/20/18 AGE: 72 : 43 SEX: F ROOM/BED: D.2105 AUTHOR: KATHERINDOC PHYSICIAN: REFERRING PHYSICIAN: JUAN SALAS MD DATE OF SERVICE: 06/25/18 Discharge Plan Patient Name: ELVIRA PADGETT Facility: [facility]:[place] : 1945 Planned Disposition: Inpatient Rehab Anticipated Discharge Date: 06/25/18 Discharge Date: Expected LOS: 5 Initial Reviewer: [id number] Initial Review Date: 06/20/2018 Generated: 06/25/18 11:11 am Comments DCP- Discharge Planning Updated by [id number]: Erick Mason on 06/25/18 9:[address] Patient Name: ELVIRA PADGETT Admission Status: Elective Accout number: [id number] Admission Date: 06-20-2018 : 1945 Admission Diagnosis: Attending: JUAN SALAS Current LOS: 5 Anticipated DC Date: 06-25-2018 Planned Disposition: Inpatient Rehab Primary Insurance: MEDICARE A & B PLANNED EXTERNAL PROVIDER: [facility] INPATIENT [facility] DCP follow-up note: CM FAXED REFERRAL UPDATE FOR REHAB SCREENING TO [phone]. CM WAITING SCREENING AND ADMISSION DETERMINATION FROM [facility] INPATIENT REH[facility]. SOFY Zhang DCP- Discharge Planning Updated by [id number]: Erick Mason on 06/22/18 3:[address] Patient Name: ELVIRA PADGETT Encounter No: [id number] : 1945 Primary Insurance: MEDICARE A & B Anticipated DC Date: 06-25-2018 Planned Disposition: Inpatient Rehab External Planned Provider: [facility] INPATIENT REH[facility] DCP follow-up note: CM RECEIVED ORDER FOR INPATIENT REHAB PRESCREENING. CM MET WITH PT AND SPOUSE IN ROOM TO DISCUSS DISCHARGE PLANNING AND NEEDS. CM DISCUSSED THERAPY RESULTS, ORDER AND AVAILABILITY OF REHAB PROVIDERS AND LOCATIONS. PT AND SPOUSE WOULD LIKE REFERRAL TO [facility] INPATIENT REH[facility] PT'S HOME IS ABOUT 6 [address] FROM THE FACILITY. PT'S SPOUSE AGAIN VOICED THAT PT IS STILL TOO SICK TO LEAVE AND NEEDS FURTHER TREATMENT. CM EXPLAINED IMPORTANTANCE OF DISCHARGE PLANNING AND PROCESS OF ASSESSMENT BY REHAB. PT AND SPOUSE BOTH IN AGREEMENT WITH REFERRAL TO [facility] INPATIENT REH[facility]. IMPORTANT MESSAGE FROM MEDICARE PROVIDED AND DISCUSSED. CM CALLED [facility] INPATIENT [facility], , SPOKE TO THAIS MONTES, WHO INFORMED CM THAT THEY WILL NOT HAVE A DOCTOR AVAILBLE FOR SCREENING UNTIL 06-25-18. CM FAXED REFERRAL FOR REHAB SCREENING TO [phone]. CM WAITING SCREENING AND ADMISSION DETERMINATION FROM [facility] REHAB ON 06-25-18. Erick Mason, CASE MANAGEMENT DCP- Discharge Planning Updated by [id number]: Erick Mason on 06/21/18 4:[address] Patient Name: ELVIRA PADGETT Admission Status: Elective Accout number: [id number] Admission Date: 06-20-2018 : 1945 Admission Diagnosis: Attending: JUAN SALAS Current LOS: 1 Anticipated DC Date: Planned Disposition: Home Primary Insurance: MEDICARE A & B Discharge Planning Comments: CM RECEIVED CALL FROM RENY OF [facility], , WHO LEFT MESSAGE INFORMING THAT PT WAS FROM [facility] AND ASKED FOR UPDATE. CM MET WITH PT AND SPOUSE IN ROOM TO DISCUSS DISCHARGE PLANNING AND NEEDS. ELVIRA PADGETT provided verbal consent to discuss current and ongoing needs with/in the presence of: SPOUSE, ANGÉLICA. PT REPORTS LIVING AT HOME INDEPENDENTLY WITH HER SPOUSE. PT HAS BEEN IN REHAB AT [facility] AND DOES NOT PLAN TO RETURN TO REHAB. PT HAS CANE AND WALKER AT HOME FROM [facility]. PT HAS NO OUTSIDE SERVICES ASSISTING IN THE HOME. CM DISCUSSED AVAILABILITY OF HOME HEALTH, REHAB SERVICES AND MEDICAL EQUIPMENT. PT DENIES DISCHARGE NEEDS AT THIS TIME, CM ASKED PT IF SHE WAS ABLE TO STAND AND WALK AT THIS TIME, PT DOES NOT THINK SHE CAN. CM EXPLAINED THAT IT MIGHT BE BEST TO KEEP REHAB OPTION OPEN, PT DECLINED AND AGAIN STATES SHE WILL BE GOING HOME AT DISCHARGE. PT'S SPOUSE REPORTS PT IS STILL SICK AND IT IS TOO EARLY TO TELL WHAT PT MIGHT NEED. SPOUSE REPORTS HE WILL BE TAKING PT HOME AT DISCHARGE. PT IS NOT RETURNING TO REHAB AT [facility]. PT PLANS TO DISCHARGE HOME WITH SPOUSE, HAS UNKNOWN DISCHARGE NEEDS AT THIS TIME. CM TO CONTINUE TO FOLLOW AND ASSIST NEEDED. Cargo Trimmer: Erick Mason DCPIA - Discharge Planning Initial Assessment Updated by [id number]: Erick Mason on 06/21/18 5:31 pm * Is the patient Alert and Oriented? Yes * How many steps to enter\exit or inside your home? * PCP DR. LEYVA IN [place] * Pharmacy [facility] IN [place] OR [facility] * Preadmission Environment [facility] Facility * Facility Name [facility] [phone] * ADLs Partial Dependent * Partial ADLs (Assistance needed) Ambulation Medication Management Transfers * Equipment Cane Walker * Other Equipment [facility] [place] * List name and contact numbers for known caregivers / representatives who currently or will assist patient after discharge: ANGÉLICA PADGETT, SPOUSE, ANGÉLICA PADGETT, SON, CATALINANILS MCCOYON, DTR, * Verbal permission to speak to the caregivers and representatives has been obtained from the patient. Yes * Community resources currently utilized None * Please name any agencies selected above. NONE * Additional services required to return to the preadmission environment? Yes * Can the patient safely return to the preadmission environment? Yes * Has this patient been hospitalized within the prior 30 days at any hospital? Yes Coverage Notice Reviewer: [id number] - Erick Mason Notice Issued Date-Time: 06/22/2018 15:00 Notice Type: IM Discharge Notice Notice Delivered To: Family Member Relationship to Patient: Spouse Store Hand Name: ANGÉLICA PADGETT Delivery Method: HAND - Hand Delivered Es Days: Prior Verbal Notification: Recipient Understood Notice: Yes Recipient Signature: Yes Med Rec Note Co-signed by Attending: Coverage Notice Comment: Last DP export: 06/22/18 3:58 p Patient Name: ELVIRA PADGETT Page 24662 at 1011 All edits/amendments must be made on the electronic document DICTATION DATE: 06/25/18 1011 TRACTOR SWEEPER OPERATOR: VINCENT 06/25/18 1011 RPT#: [id number] DC DATE: STATUS: ADM IN [facility] [address] [place] [address] END OF REPORT
--- NOTE | 2018-06-25 10:57 | NUR ---
ASSIT X 2 TO RESTROOM. PATIENT STATES THAT SHE CAN DO IT HERSELF BUT GAIT IS A LITTLE UNSTEADY. ASKED HER TO US THE EMERGENCY LIGHT FOR ASSIT BACK TO BED, STATES TO UNDERSTANDING.
--- NOTE | 2018-06-25 12:29 | NUR ---
SITTING ON SIDE OF BED EATING LUNCH. DENIES NEEDS AT THIS TIME.
[2018-06-25 12:53] VITALS: BP 142/69
--- NOTE | 2018-06-25 13:09 | NUR ---
RE-DRAW OF K+ IS 3.4. I WENT TO COVER WITH ADDITIONAL POTASSIUM SUPPLEMENTS AND THE PATIENT ASKED THAT I COME BACK IN ABOUT 10 MIN.
--- NOTE | 2018-06-25 15:32 | NUR ---
PAGE INTO KAREN LE[facility]ITT APN.
--- NOTE | 2018-06-25 16:49 | MORECARE ---
CASE MANAGEMENT DISCHARGE SUMMARY PATIENT: ELVIRA PADGETT UNIT: [id number] ADM DATE: 06/20/18 AGE: 72 : 43 SEX: F ROOM/BED: D.2105 AUTHOR: KATHERINDOC PHYSICIAN: REFERRING PHYSICIAN: JUAN SALAS MD DATE OF SERVICE: 06/25/18 Discharge Plan Patient Name: ELVIRA PADGETT Facility: [facility]:[place] : 1945 Planned Disposition: Home with Home Health Anticipated Discharge Date: 06/25/18 Discharge Date: Expected LOS: 5 Initial Reviewer: [id number] Initial Review Date: 06/20/2018 Generated: 06/25/18 5:48 pm Comments DCP- Discharge Planning Updated by [id number]: Erick Mason on 06/25/18 9:[address] Patient Name: ELVIRA PADGETT Admission Status: Elective Accout number: [id number] Admission Date: 06-20-2018 : 1945 Admission Diagnosis: Attending: JUAN SALAS Current LOS: 5 Anticipated DC Date: 06-25-2018 Planned Disposition: Inpatient Rehab Primary Insurance: MEDICARE A & B PLANNED EXTERNAL PROVIDER: [facility] INPATIENT REHAB DCP follow-up note: CM FAXED REFERRAL UPDATE FOR REHAB SCREENING TO [phone]. CM WAITING SCREENING AND ADMISSION DETERMINATION FROM [facility] INPATIENT REHAB. SOFY Zhang DCP- Discharge Planning Updated by [id number]: Erick Mason on 06/22/18 3:[address] Patient Name: ELVIRA PADGETT Encounter No: [id number] : 1945 Primary Insurance: MEDICARE A & B Anticipated DC Date: 06-25-2018 Planned Disposition: Inpatient Rehab External Planned Provider: [facility] INPATIENT REH[facility] DCP follow-up note: CM RECEIVED ORDER FOR INPATIENT REHAB PRESCREENING. CM MET WITH PT AND SPOUSE IN ROOM TO DISCUSS DISCHARGE PLANNING AND NEEDS. CM DISCUSSED THERAPY RESULTS, ORDER AND AVAILABILITY OF REHAB PROVIDERS AND LOCATIONS. PT AND SPOUSE WOULD LIKE REFERRAL TO [facility] INPATIENT REHAB PT'S HOME IS ABOUT 6 MILES FROM THE FACILITY. PT'S SPOUSE AGAIN VOICED THAT PT IS STILL TOO SICK TO LEAVE AND NEEDS FURTHER TREATMENT. CM EXPLAINED IMPORTANTANCE OF DISCHARGE PLANNING AND PROCESS OF ASSESSMENT BY REHAB. PT AND SPOUSE BOTH IN AGREEMENT WITH REFERRAL TO [facility] INPATIENT REHAB. IMPORTANT MESSAGE FROM MEDICARE PROVIDED AND DISCUSSED. CM CALLED [facility] INPATIENT RE[facility], , SPOKE TO THAIS MONTES, WHO INFORMED CM THAT THEY WILL NOT HAVE A DOCTOR AVAILBLE FOR SCREENING UNTIL 06-25-18. CM FAXED REFERRAL FOR REHAB SCREENING TO [phone]. CM WAITING SCREENING AND ADMISSION DETERMINATION FROM [facility] INPATIENT REHAB ON 06-25-18. Erick Mason, CASE MANAGEMENT DCP- Discharge Planning Updated by [id number]: Erick Mason on 06/21/18 4:[address] Patient Name: ELVIRA PADGETT Admission Status: Elective Accout number: [id number] Admission Date: 06-20-2018 : 1945 Admission Diagnosis: Attending: JUAN SALAS Current LOS: 1 Anticipated DC Date: Planned Disposition: Home Primary Insurance: MEDICARE A & B Discharge Planning Comments: CM RECEIVED CALL FROM RENY OF [facility], , WHO LEFT MESSAGE INFORMING THAT PT WAS FROM [facility] AND ASKED FOR UPDATE. CM MET WITH PT AND SPOUSE IN ROOM TO DISCUSS DISCHARGE PLANNING AND NEEDS. ELVIRA PADGETT provided verbal consent to discuss current and ongoing needs with/in the presence of: SPOUSE, ANGÉLICA. PT REPORTS LIVING AT HOME INDEPENDENTLY WITH HER SPOUSE. PT HAS BEEN IN REHAB AT [facility] AND DOES NOT PLAN TO RETURN TO REHAB. PT HAS CANE AND WALKER AT HOME FROM [place] [employer]. PT HAS NO OUTSIDE SERVICES ASSISTING IN THE HOME. CM DISCUSSED AVAILABILITY OF HOME HEALTH, REHAB SERVICES AND MEDICAL EQUIPMENT. PT DENIES DISCHARGE NEEDS AT THIS TIME, CM ASKED PT IF SHE WAS ABLE TO STAND AND WALK AT THIS TIME, PT DOES NOT THINK SHE CAN. CM EXPLAINED THAT IT MIGHT BE BEST TO KEEP REHAB OPTION OPEN, PT DECLINED AND AGAIN STATES SHE WILL BE GOING HOME AT DISCHARGE. PT'S SPOUSE REPORTS PT IS STILL SICK AND IT IS TOO EARLY TO TELL WHAT PT MIGHT NEED. SPOUSE REPORTS HE WILL BE TAKING PT HOME AT DISCHARGE. PT IS NOT RETURNING TO REHAB AT [facility]. PT PLANS TO DISCHARGE HOME WITH SPOUSE, HAS UNKNOWN DISCHARGE NEEDS AT THIS TIME. CM TO CONTINUE TO FOLLOW AND ASSIST NEEDED. Tongue Carrier: Erick Mason DCPIA - Discharge Planning Initial Assessment Updated by [email or web address]: Erick Mason on 06/21/18 5:31 pm * Is the patient Alert and Oriented? Yes * How many steps to enter\exit or inside your home? * PCP DR. LEYVA IN [place] * Pharmacy [facility] IN [place] OR [facility] * Preadmission Environment [facility] Facility * Facility Name [facility] [phone] * ADLs Partial Dependent * Partial ADLs (Assistance needed) Ambulation Medication Management Transfers * Equipment Cane Walker * Other Equipment [facility] [place] * List name and contact numbers for known caregivers / representatives who currently or will assist patient after discharge: ANGÉLICA PADGETT, SPOUSE, ANGÉLICA PADGETT, SON, CATALINANILS MCCOYON, DTR, * Verbal permission to speak to the caregivers and representatives has been obtained from the patient. Yes * Community resources currently utilized None * Please name any agencies selected above. NONE * Additional services required to return to the preadmission environment? Yes * Can the patient safely return to the preadmission environment? Yes * Has this patient been hospitalized within the prior 30 days at any hospital? Yes Coverage Notice Reviewer: [id number] - Erick Mason Notice Issued Date-Time: 06/22/2018 15:00 Notice Type: IM Discharge Notice Notice Delivered To: Family Member Relationship to Patient: Spouse Team Leader/Research Psychologist Name: ANGÉLICA PADGETT Delivery Method: HAND - Hand Delivered Es Days: Prior Verbal Notification: Recipient Understood Notice: Yes Recipient Signature: Yes Med Rec Note Co-signed by Attending: Coverage Notice Comment: Last DP export: 06/25/18 9:11 a Patient Name: ELVIRA PADGETT Page 26154 at 1649 All edits/amendments must be made on the electronic document DICTATION DATE: 06/25/181647 SOFT DRINK POWDER MIXER: VINCENT 06/25/181647 RPT#: [id number] DC DATE: STATUS: ADM IN [facility] [address] [place] [address] END OF REPORT
--- NOTE | 2018-06-25 17:04 | MORECARE ---
CASE MANAGEMENT DISCHARGE SUMMARY PATIENT: ELVIRA PADGETT UNIT: [id number] ADM DATE: 06/20/18 AGE: 72 : 43 SEX: F ROOM/BED: D.8776 AUTHOR: KATHERIN,DOC PHYSICIAN: REFERRING PHYSICIAN: JUAN SALAS MD DATE OF SERVICE: 06/25/18 Discharge Plan Patient Name: ELVIRA PADGETT Facility: [facility]:[place] : 1945 Planned Disposition: Home with Home Health Anticipated Discharge Date: 06/25/18 Discharge Date: Expected LOS: 5 Initial Reviewer: [id number] Initial Review Date: 06/20/2018 Generated: 06/25/18 6:03 pm Comments DCP- Discharge Planning Updated by [id number]: Erick Mason on 06/25/18 3:[address] Patient Name: ELVIRA PADGETT Encounter No: [id number] : 1945 Primary Insurance: MEDICARE A & B Anticipated DC Date: 06-25-2018 Planned Disposition: Home with Home Health External Planned Provider: TO BE DETERMINED DCP follow-up note: MAYI SPOKE TO MJ OF [facility] INPATIENT REH[facility]. INFORMED CM THAT SHE HAS SCREENED PT WHO SEEMS "WIPED OUT" AFTER WALKING IN THE [place] WITH THERAPY TODAY, PT'S SPOUSE DOES NOT THINK PT CAN PARTICIPATE IN THREE HOURS OF THERAPY PER DAY AND PLANS TO TAKE PT HOME AT DISCHARGE. REPORTED THAT PT'S SPOUSE WANTS TO SPEAK TO THE DOCTOR BEFORE MAKING ANY FURTHER DECISIONS. STATES THAT IF PT CAN PARTICIPATE IN THREE HOURS OF PROGRESSIVE THERAPY AND DECIDES SHE WANTS TO SCREEN FOR ADMISSION TO REHAB, TO PLEASE LET THEM KNOW. CM SPOKE TO PT IN ROOM. PT'S SPOUSE WAS NOT PRESENT. CM DISCUSSED ABOVE INFORMATION. PT REPORTS SHE WAS SLEEPING FOR MOST OF THE SCREENERS VISIT. SHE DOES NOT KNOW WHAT HER TOLD THE SCREENER BUT PT IS NOT SURE IF HE IS GOING TO BE ABLE TO LIFT HER AND TO ASSIST HER MUCH SHE NEEDS AT HOME. PT DOES NOT WANT TO GO TO [facility] BUT REPORTS SHE DOES NOT THINK THAT SHE HERSELF CAN DO THREE HOURS OF REQUIRED THERAPY PER DAY IN THE INPATIENT REHAB. CM DISCUSSED AVAILABILITY OF REHAB SERVICES, HOME HEALTH AND MEDICAL EQUIPMENT. CM EXPLAINED THAT MAYBE PT'S SPOUSE COULD ATTEMPT TO ASSIST PT IN ROOM WITH TRANSFER WHILE THERAPY WAS PRESENT TO TEST AND SEE IF GOING HOME WITH SPOUSE'S ASSISTANCE IS AN OPTION. PT WILL DISCUSS THIS WITH HER SPOUSE. PT WOULD LIKE TO DISCUSS DISCHARGE PLAN WITH HER SPOUSE AND WILL LET CM KNOW WHAT THEY WOULD LIKE TO DO. PT AND PT'S SPOUSE HAVE DECLINED [facility] RE[facility]AB RETURN. PT'S SPOUSE DECLINED INPATIENT REHAB AT [facility]. PT'S SPOUSE WANTS TO SPEAK TO THE DOCTOR BEFORE MAKING ANY FURTHER DISCHARGE PLANNING DECISIONS. PT'S SPOUSE HAS STATED HE WILL BE TAKING PT HOME AT DISCHARGE. CM HAS OFFERED HOME HEALTH SERVICES. CM WAITING PT AND HER SPOUSE TO DISCUSS DISCHARGE PLAN AND NOTIFY CM OF NEEDS. Erick Mason CASE MANAGEMENT DCP- Discharge Planning Updated by [id number]: Erick Mason on 06/25/18 9:[address] Patient Name: ELVIRA PADGETT Admission Status: Elective Accout number: [id number] Admission Date: 06-20-2018 : 1945 Admission Diagnosis: Attending: JUAN SALAS Current LOS: 5 Anticipated DC Date: 06-25-2018 Planned Disposition: Inpatient Rehab Primary Insurance: MEDICARE A & B PLANNED EXTERNAL PROVIDER: [facility] INPATIENT REH[facility] DCP follow-up note: CM FAXED REFERRAL UPDATE FOR REHAB SCREENING TO [phone]. CM WAITING SCREENING AND ADMISSION DETERMINATION FROM [facility] INPATIENT REHAB. SOFY Zhang DCP- Discharge Planning Updated by [id number]: Erick Mason on 06/22/18 3:[address] Patient Name: ELVIRA PADGETT Encounter No: [id number] : 1945 Primary Insurance: MEDICARE A & B Anticipated DC Date: 06-25-2018 Planned Disposition: Inpatient Rehab External Planned Provider: [facility] INPATIENT REH[facility] DCP follow-up note: CM RECEIVED ORDER FOR INPATIENT REHAB PRESCREENING. CM MET WITH PT AND SPOUSE IN ROOM TO DISCUSS DISCHARGE PLANNING AND NEEDS. CM DISCUSSED THERAPY RESULTS, ORDER AND AVAILABILITY OF REHAB PROVIDERS AND LOCATIONS. PT AND SPOUSE WOULD LIKE REFERRAL TO [facility] INPATIENT REHAB PT'S HOME IS ABOUT 6 MILES FROM THE FACILITY. PT'S SPOUSE AGAIN VOICED THAT PT IS STILL TOO SICK TO LEAVE AND NEEDS FURTHER TREATMENT. CM EXPLAINED IMPORTANTANCE OF DISCHARGE PLANNING AND PROCESS OF ASSESSMENT BY REHAB. PT AND SPOUSE BOTH IN AGREEMENT WITH REFERRAL TO [facility] INPATIENT REHAB. IMPORTANT MESSAGE FROM MEDICARE PROVIDED AND DISCUSSED. CM CALLED [facility] INPATIENT REH[facility], , SPOKE TO THAIS MONTES, WHO INFORMED CM THAT THEY WILL NOT HAVE A DOCTOR AVAILBLE FOR SCREENING UNTIL 06-25-18. CM FAXED REFERRAL FOR REHAB SCREENING TO [phone]. CM WAITING SCREENING AND ADMISSION DETERMINATION FROM [facility] REHAB ON 06-25-18. Erick Mason, CASE MANAGEMENT DCP- Discharge Planning Updated by [id number]: Erick Mason on 06/21/18 4:[address] Patient Name: ELVIRA PADGETT Admission Status: Elective Accout number: [id number] Admission Date: 06-20-2018 : 1945 Admission Diagnosis: Attending: JUAN SALAS Current LOS: 1 Anticipated DC Date: Planned Disposition: Home Primary Insurance: MEDICARE A & B Discharge Planning Comments: CM RECEIVED CALL FROM RENY OF [facility], , WHO LEFT MESSAGE INFORMING THAT PT WAS FROM [facility] AND ASKED FOR UPDATE. CM MET WITH PT AND SPOUSE IN ROOM TO DISCUSS DISCHARGE PLANNING AND NEEDS. ELVIRA PADGETT provided verbal consent to discuss current and ongoing needs with/in the presence of: SPOUSE, ANGÉLICA. PT REPORTS LIVING AT HOME INDEPENDENTLY WITH HER SPOUSE. PT HAS BEEN IN REHAB AT [facility] AND DOES NOT PLAN TO RETURN TO REHAB. PT HAS CANE AND WALKER AT HOME FROM [place] [employer]. PT HAS NO OUTSIDE SERVICES ASSISTING IN THE HOME. CM DISCUSSED AVAILABILITY OF HOME HEALTH, REHAB SERVICES AND MEDICAL EQUIPMENT. PT DENIES DISCHARGE NEEDS AT THIS TIME, CM ASKED PT IF SHE WAS ABLE TO STAND AND WALK AT THIS TIME, PT DOES NOT THINK SHE CAN. CM EXPLAINED THAT IT MIGHT BE BEST TO KEEP REHAB OPTION OPEN, PT DECLINED AND AGAIN STATES SHE WILL BE GOING HOME AT DISCHARGE. PT'S SPOUSE REPORTS PT IS STILL SICK AND IT IS TOO EARLY TO TELL WHAT PT MIGHT NEED. SPOUSE REPORTS HE WILL BE TAKING PT HOME AT DISCHARGE. PT IS NOT RETURNING TO REHAB AT [facility]. PT PLANS TO DISCHARGE HOME WITH SPOUSE, HAS UNKNOWN DISCHARGE NEEDS AT THIS TIME. CM TO CONTINUE TO FOLLOW AND ASSIST NEEDED. Stand Up Forklift Operator: Erick Mason DCPIA - Discharge Planning Initial Assessment Updated by [id number]: Erick Mason on 06/21/18 5:31 pm * Is the patient Alert and Oriented? Yes * How many steps to enter\\exit or inside your home? * PCP DR. LEYVA IN [place] * Pharmacy [facility] IN [place] OR [facility] * Preadmission Environment Long-Term Facility * Facility Name [facility] [phone] * ADLs Partial Dependent * Partial ADLs (Assistance needed) Ambulation Medication Management Transfers * Equipment Cane Walker * Other Equipment [facility] [place] * List name and contact numbers for known caregivers / representatives who currently or will assist patient after discharge: ANGÉLICA PADGETT, SPOUSE, ANGÉLICA PADGETT, SON, CATALINA PADGETT, DTR, * Verbal permission to speak to the caregivers and representatives has been obtained from the patient. Yes * Community resources currently utilized None * Please name any agencies selected above. NONE * Additional services required to return to the preadmission environment? Yes * Can the patient safely return to the preadmission environment? Yes * Has this patient been hospitalized within the prior 30 days at any hospital? Yes Coverage Notice Reviewer: [id number] - Erick Mason Notice Issued Date-Time: 06/22/2018 15:00 Notice Type: IM Discharge Notice Notice Delivered To: Family Member Relationship to Patient: Spouse Sales Data Analyst Name: ANGÉLICA PADGETT Delivery Method: HAND - Hand Delivered Es Days: Prior Verbal Notification: Recipient Understood Notice: Yes Recipient Signature: Yes Med Rec Note Co-signed by Attending: Coverage Notice Comment: Last DP export: 06/25/18 3:49 p Patient Name: ELVIRA PADGETT Page 87774 at 1704 All edits/amendments must be made on the electronic document DICTATION DATE: 06/25/181702 STEREOTYPER HELPER: VINCENT 06/25/181702 RPT#: [id number] DC DATE: STATUS: ADM IN [facility] [address] [place] [address] END OF REPORT
[2018-06-25 17:08] LABS: ANCA - ANTIMYELOPEROXIDASE <9.0 U/mL (0.0-9.0); ANCA - ANTIPROTEINASE 3 <3.5 U/mL (0.0-3.5); ANCA - ATYPICAL <1:20 titer (Neg:<1:20); ANCA - CYTOPLASMIC <1:20 titer (Neg:<1:20); ANCA - PERINUCLEAR <1:20 titer (Neg:<1:20)
[2018-06-25] MEDS ORDERED: COREG12.5 MG PO (17:13)
[2018-06-25] MEDS ORDERED: KEPPRA500 MG PO (17:22)
--- NOTE | 2018-06-25 17:36 | NUR ---
AT BEDSIDE, INFORMED OF DISCHARGE. HE TELLS ME " I AM NOT DRIVING IN THE DARK AND I JUST GOT A HOTEL ROOM". CAMILLE KAPLAN RN CHARGE INFORMED OF THIS.
[2018-06-25 17:47] VITALS: BP 136/50
--- NOTE | 2018-06-25 19:22 | NUR ---
RESUMED CARE OF PT, LYING IN BED RESPIRATIONS EVEN AND UNLABORED ON ROOM AIR. RIGHT FOREARM SALINE LOCKED. 70 SR ON TELEMETRY. AT BEDSIDE. CALL LIGHT IN REACH. PLAN OF CARE DISCUSSED. SEE NURSE ASSESSMENT.
[2018-06-25 21:03] VITALS: BP 142/48
[2018-06-26 01:03] VITALS: BP 176/51
--- NOTE | 2018-06-26 02:57 | NUR ---
LYING IN BED WITH EYES CLOSED, CALL LIGHT IN REACH. WILL CONTINUE WITH PLAN OF CARE.
[2018-06-26 05:30] LABS: BASOPHILS 0.3 % (0-2); EOSINOPHILS 3.3 % (0-7); HEMATOCRIT 32.9 % (36.0-48.0); HEMOGLOBIN 10.6 g/dL (12-16); IMMATURE GRANULOCYTES 0.7 % (0-5); LYMPHOCYTES 26.6 % (15-50); MCH 27.7 pg (26.0-34.0); MCHC 32.2 g/dL (31.0-37.0); MCV 85.9 fL (80.0-100.0); MEAN PLATELET VOLUME 11.4 fL (7.4-10.4); MONOCYTES 11.7 % (2-11); NEUTROPHILS 57.4 % (40-80); PLATELET COUNT 233 10x3/uL (130-400); RBC 3.83 10x6/uL (4.00-5.40); WBC 6.1 10x3/uL (4.8-10.8)
[2018-06-26 05:47] LABS: ANION GAP 15.4 mmol/L (8-16); CALCIUM 8.2 mg/dL (8.5-10.1); CARBON DIOXIDE 22.9 mmol/L (21.0-32.0)
[2018-06-26 05:57] LABS: CREATININE - SERUM 0.9 mg/dL (0.6-1.3); POTASSIUM - SERUM 3.3 mmol/L (3.5-5.1)
[2018-06-26 06:21] VITALS: BP 175/58
--- NOTE | 2018-06-26 07:35 | NUR ---
ROUNDING DONE WITH PATIENT NEEDING TO USE RESTROOM QUICKLY. DRIBBLES TO FLOOR. ASSISTED X 2 TO RESTROOM. CLEANED UP AND COMPLETE BED LINEN DONE. PATIENT IS ON HEART MONITOR SHOWING SR, HR 63. ON ROOM AIR. RIGHT FA PIV SEEN WITH SALINE LOCK. ON EP, K+ IS 3.3, COVERED WITH ORAL SUPPLEMENT. NEW LABS ORDERED. FOR DISCHARGE TODAY.
[2018-06-26 09:06] VITALS: BP 166/65
--- NOTE | 2018-06-26 09:49 | NUR ---
Nutrition follow-up: Diet: ADA consistent CHO PO Intkae ~75% of some meals +BM, loose Labs reviewed; glucose elevated Wt: 229# Pt may discharge today. PO intake fair to good at meals. RDN following.
--- NOTE | 2018-06-26 10:01 | NUR ---
PAGE INTO KAREN LEAVITT APN PATIENT AND TELL ME THAT SHE DOES NOT TAKE KEPPRA AT HOME. AWAITING CALL BACK TO SEE IF WE NEED TO CORRECT D/C MEDS.
--- NOTE | 2018-06-26 10:52 | MORECARE ---
CASE MANAGEMENT DISCHARGE SUMMARY PATIENT: ELVIRA PADGETT UNIT: [id number] ADM DATE: 06/20/18 AGE: 72 : 43 SEX: F ROOM/BED: D.0798 AUTHOR: KATHERIN,DOC PHYSICIAN: REFERRING PHYSICIAN: JUAN SALAS MD DATE OF SERVICE: 06/26/18 Discharge Plan Patient Name: ELVIRA PADGETT Facility: [facility]:[place] : 1945 Planned Disposition: Home with Home Health Anticipated Discharge Date: 06/25/18 Discharge Date: Expected LOS: 5 Initial Reviewer: [id number] Initial Review Date: 06/20/2018 Generated: 06/26/18 11:52 am Comments DCP- Discharge Planning Updated by [id number]: Erick Mason on 06/25/18 3:[address] Patient Name: ELVIRA PADGETT Encounter No: [id number] : 1945 Primary Insurance: MEDICARE A & B Anticipated DC Date: 06-25-2018 Planned Disposition: Home with Home Health External Planned Provider: TO BE DETERMINED DCP follow-up note: MAYI SPOKE TO MJ OF [facility] INPATIENT [facility]. INFORMED CM THAT SHE HAS SCREENED PT WHO SEEMS "WIPED OUT" AFTER WALKING IN THE [place] WITH THERAPY TODAY, PT'S SPOUSE DOES NOT THINK PT CAN PARTICIPATE IN THREE HOURS OF THERAPY PER DAY AND PLANS TO TAKE PT HOME AT DISCHARGE. REPORTED THAT PT'S SPOUSE WANTS TO SPEAK TO THE DOCTOR BEFORE MAKING ANY FURTHER DECISIONS. STATES THAT IF PT CAN PARTICIPATE IN THREE HOURS OF PROGRESSIVE THERAPY AND DECIDES SHE WANTS TO SCREEN FOR ADMISSION TO REHAB, TO PLEASE LET THEM KNOW. CM SPOKE TO PT IN ROOM. PT'S SPOUSE WAS NOT PRESENT. CM DISCUSSED ABOVE INFORMATION. PT REPORTS SHE WAS SLEEPING FOR MOST OF THE SCREENERS VISIT. SHE DOES NOT KNOW WHAT HER TOLD THE SCREENER BUT PT IS NOT SURE IF HE IS GOING TO BE ABLE TO LIFT HER AND TO ASSIST HER MUCH SHE NEEDS AT HOME. PT DOES NOT WANT TO GO TO [facility] BUT REPORTS SHE DOES NOT THINK THAT SHE HERSELF CAN DO THREE HOURS OF REQUIRED THERAPY PER DAY IN THE INPATIENT REHAB. CM DISCUSSED AVAILABILITY OF REHAB SERVICES, HOME HEALTH AND MEDICAL EQUIPMENT. CM EXPLAINED THAT MAYBE PT'S SPOUSE COULD ATTEMPT TO ASSIST PT IN ROOM WITH TRANSFER WHILE THERAPY WAS PRESENT TO TEST AND SEE IF GOING HOME WITH SPOUSE'S ASSISTANCE IS AN OPTION. PT WILL DISCUSS THIS WITH HER SPOUSE. PT WOULD LIKE TO DISCUSS DISCHARGE PLAN WITH HER SPOUSE AND WILL LET CM KNOW WHAT THEY WOULD LIKE TO DO. PT AND PT'S SPOUSE HAVE DECLINED [facility] REHAB RETURN. PT'S SPOUSE DECLINED INPATIENT REHAB AT [facility]. PT'S SPOUSE WANTS TO SPEAK TO THE DOCTOR BEFORE MAKING ANY FURTHER DISCHARGE PLANNING DECISIONS. PT'S SPOUSE HAS STATED HE WILL BE TAKING PT HOME AT DISCHARGE. CM HAS OFFERED HOME HEALTH SERVICES. CM WAITING PT AND HER SPOUSE TO DISCUSS DISCHARGE PLAN AND NOTIFY CM OF NEEDS. Erick Mason CASE MANAGEMENT DCP- Discharge Planning Updated by [id number]: Erick Mason on 06/25/18 9:[address] Patient Name: ELVIRA PADGETT Admission Status: Elective Accout number: [id number] Admission Date: 06-20-2018 : 1945 Admission Diagnosis: Attending: JUAN SALAS Current LOS: 5 Anticipated DC Date: 06-25-2018 Planned Disposition: Inpatient Rehab Primary Insurance: MEDICARE A & B PLANNED EXTERNAL PROVIDER: [facility] DCP follow-up note: CM FAXED REFERRAL UPDATE FOR REHAB SCREENING TO [phone]. CM WAITING SCREENING AND ADMISSION DETERMINATION FROM [facility]PAT[facility]. SOFY Zhang DCP- Discharge Planning Updated by [id number]: Erikc Mason on 06/22/18 3:[address] Patient Name: ELVIRA PADGETT Encounter No: [id number] : 1945 Primary Insurance: MEDICARE A & B Anticipated DC Date: 06-25-2018 Planned Disposition: Inpatient Rehab External Planned Provider: [facility] DCP follow-up note: CM RECEIVED ORDER FOR INPATIENT REHAB PRESCREENING. CM MET WITH PT AND SPOUSE IN ROOM TO DISCUSS DISCHARGE PLANNING AND NEEDS. CM DISCUSSED THERAPY RESULTS, ORDER AND AVAILABILITY OF REHAB PROVIDERS AND LOCATIONS. PT AND SPOUSE WOULD LIKE REFERRAL TO [facility] INPAT[facility] PT'S HOME IS ABOUT [address] FROM THE FACILITY. PT'S SPOUSE AGAIN VOICED THAT PT IS STILL TOO SICK TO LEAVE AND NEEDS FURTHER TREATMENT. CM EXPLAINED IMPORTANTANCE OF DISCHARGE PLANNING AND PROCESS OF ASSESSMENT BY REHAB. PT AND SPOUSE BOTH IN AGREEMENT WITH REFERRAL TO [facility] INPATIENT RE[facility]. IMPORTANT MESSAGE FROM MEDICARE PROVIDED AND DISCUSSED. CM CALLED [facility], , SPOKE TO THAIS MONTES, WHO INFORMED CM THAT THEY WILL NOT HAVE A DOCTOR AVAILBLE FOR SCREENING UNTIL 06-25-18. CM FAXED REFERRAL FOR REHAB SCREENING TO [phone]. CM WAITING SCREENING AND ADMISSION DETERMINATION FROM [facility] ON 06-25-18. Erick Mason, CASE MANAGEMENT DCP- Discharge Planning Updated by [id number]: Erick Mason on 06/21/18 4:[address] Patient Name: ELVIRA PADGETT Admission Status: Elective Accout number: [id number] Admission Date: 06-20-2018 : 1945 Admission Diagnosis: Attending: JUAN SALAS Current LOS: 1 Anticipated DC Date: Planned Disposition: Home Primary Insurance: MEDICARE A & B Discharge Planning Comments: CM RECEIVED CALL FROM RENY OF [facility], , WHO LEFT MESSAGE INFORMING THAT PT WAS [facility] AND ASKED FOR UPDATE. CM MET WITH PT AND SPOUSE IN ROOM TO DISCUSS DISCHARGE PLANNING AND NEEDS. ELVIRA PADGETT provided verbal consent to discuss current and ongoing needs with/in the presence of: SPOUSE, ANGÉLICA. PT REPORTS LIVING AT HOME INDEPENDENTLY WITH HER SPOUSE. PT HAS BEEN IN REHAB AT [facility] AND DOES NOT PLAN TO RETURN TO REHAB. PT HAS CANE AND WALKER AT HOME FROM [facility]. PT HAS NO OUTSIDE SERVICES ASSISTING IN THE HOME. CM DISCUSSED AVAILABILITY OF HOME HEALTH, REHAB SERVICES AND MEDICAL EQUIPMENT. PT DENIES DISCHARGE NEEDS AT THIS TIME, CM ASKED PT IF SHE WAS ABLE TO STAND AND WALK AT THIS TIME, PT DOES NOT THINK SHE CAN. CM EXPLAINED THAT IT MIGHT BE BEST TO KEEP REHAB OPTION OPEN, PT DECLINED AND AGAIN STATES SHE WILL BE GOING HOME AT DISCHARGE. PT'S SPOUSE REPORTS PT IS STILL SICK AND IT IS TOO EARLY TO TELL WHAT PT MIGHT NEED. SPOUSE REPORTS HE WILL BE TAKING PT HOME AT DISCHARGE. PT IS NOT RETURNING TO REHAB AT [facility]. PT PLANS TO DISCHARGE HOME WITH SPOUSE, HAS UNKNOWN DISCHARGE NEEDS AT THIS TIME. CM TO CONTINUE TO FOLLOW AND ASSIST NEEDED. Special Programs Director: Erick Mason DCPIA - Discharge Planning Initial Assessment Updated by [id number]: Erick Mason on 06/21/18 5:31 pm * Is the patient Alert and Oriented? Yes * How many steps to enter\\exit or inside your home? * PCP DR. LEYVA IN [place] * Pharmacy [facility] IN [place] OR [facility] * Preadmission Environment Longterm Facility * Facility Name [facility] [phone] * ADLs Partial Dependent * Partial ADLs (Assistance needed) Ambulation Medication Management Transfers * Equipment Cane Walker * Other Equipment [facility] [place] * List name and contact numbers for known caregivers / representatives who currently or will assist patient after discharge: ANGÉLICA PADGETT, SPOUSE, ANGÉLICA PADGETT, SON, CATALINA PADGETT, DTR, * Verbal permission to speak to the caregivers and representatives has been obtained from the patient. Yes * Community resources currently utilized None * Please name any agencies selected above. NONE * Additional services required to return to the preadmission environment? Yes * Can the patient safely return to the preadmission environment? Yes * Has this patient been hospitalized within the prior 30 days at any hospital? Yes External Providers External Provider: [facility] Next Contact Date: 06/26/2018 Service Request Date: Service Type: Resolution: Reviewer: Comments: Coverage Notice Reviewer: [id number] - Erick Mason Notice Issued Date-Time: 06/22/2018 15:00 Notice Type: IM Discharge Notice Notice Delivered To: Family Member Relationship to Patient: Spouse Tandem Mill Operator Name: ANGÉLICA PADGETT Delivery Method: HAND - Hand Delivered Es Days: Prior Verbal Notification: Recipient Understood Notice: Yes Recipient Signature: Yes Med Rec Note Co-signed by Attending: Coverage Notice Comment: Last DP export: 06/25/18 4:03 p Patient Name: ELVIRA PADGETT Page [id number] at 1052 All edits/amendments must be made on the electronic document DICTATION DATE: 06/26/18 105 LYE PEEL OPERATOR: VINCENT 06/26/18 105 RPT#: [id number] DC DATE: STATUS: ADM IN [facility] [address] [place] [address] END OF REPORT
--- NOTE | 2018-06-26 10:59 | MORECARE ---
CASE MANAGEMENT DISCHARGE SUMMARY PATIENT: ELVIRA PADGETT UNIT: [id number] ADM DATE: 06/20/18 AGE: 72 : 43 SEX: F ROOM/BED: D.2666 AUTHOR: KATHERIN,DOC PHYSICIAN: REFERRING PHYSICIAN: JUAN SALAS MD DATE OF SERVICE: 06/26/18 Discharge Plan Patient Name: ELVIRA PADGETT Facility: [facility]:[place] : 1945 Planned Disposition: Home with Home Health Anticipated Discharge Date: 06/26/18 Discharge Date: Expected LOS: 6 Initial Reviewer: [id number] Initial Review Date: 06/20/2018 Generated: 06/26/18 11:59 am Comments DCP- Discharge Planning Updated by [email or web address]: Erick Mason on 06/25/18 3:[address] Patient Name: ELVIRA PADGETT Encounter No: [id number] : 1945 Primary Insurance: MEDICARE A & B Anticipated DC Date: 06-25-2018 Planned Disposition: Home with Home Health External Planned Provider: TO BE DETERMINED DCP follow-up note: MAYI SPOKE TO MJ OF [facility] INPATIENT REH[facility]. INFORMED CM THAT SHE HAS SCREENED PT WHO SEEMS "WIPED OUT" AFTER WALKING IN THE [place] WITH THERAPY TODAY, PT'S SPOUSE DOES NOT THINK PT CAN PARTICIPATE IN THREE HOURS OF THERAPY PER DAY AND PLANS TO TAKE PT HOME AT DISCHARGE. REPORTED THAT PT'S SPOUSE WANTS TO SPEAK TO THE DOCTOR BEFORE MAKING ANY FURTHER DECISIONS. STATES THAT IF PT CAN PARTICIPATE IN THREE HOURS OF PROGRESSIVE THERAPY AND DECIDES SHE WANTS TO SCREEN FOR ADMISSION TO REHAB, TO PLEASE LET THEM KNOW. CM SPOKE TO PT IN ROOM. PT'S SPOUSE WAS NOT PRESENT. CM DISCUSSED ABOVE INFORMATION. PT REPORTS SHE WAS SLEEPING FOR MOST OF THE SCREENERS VISIT. SHE DOES NOT KNOW WHAT HER TOLD THE SCREENER BUT PT IS NOT SURE IF HE IS GOING TO BE ABLE TO LIFT HER AND TO ASSIST HER MUCH SHE NEEDS AT HOME. PT DOES NOT WANT TO GO TO SNF FACILITY BUT REPORTS SHE DOES NOT THINK THAT SHE HERSELF CAN DO THREE HOURS OF REQUIRED THERAPY PER DAY IN THE INPATIENT REHAB. CM DISCUSSED AVAILABILITY OF REHAB SERVICES, HOME HEALTH AND MEDICAL EQUIPMENT. CM EXPLAINED THAT MAYBE PT'S SPOUSE COULD ATTEMPT TO ASSIST PT IN ROOM WITH TRANSFER WHILE THERAPY WAS PRESENT TO TEST AND SEE IF GOING HOME WITH SPOUSE'S ASSISTANCE IS AN OPTION. PT WILL DISCUSS THIS WITH HER SPOUSE. PT WOULD LIKE TO DISCUSS DISCHARGE PLAN WITH HER SPOUSE AND WILL LET CM KNOW WHAT THEY WOULD LIKE TO DO. PT AND PT'S SPOUSE HAVE DECLINED SNF REHAB RETURN. PT'S SPOUSE DECLINED INPATIENT REHAB AT [facility]. PT'S SPOUSE WANTS TO SPEAK TO THE DOCTOR BEFORE MAKING ANY FURTHER DISCHARGE PLANNING DECISIONS. PT'S SPOUSE HAS STATED HE WILL BE TAKING PT HOME AT DISCHARGE. CM HAS OFFERED HOME HEALTH SERVICES. CM WAITING PT AND HER SPOUSE TO DISCUSS DISCHARGE PLAN AND NOTIFY CM OF NEEDS. Erick Mason CASE MANAGEMENT DCP- Discharge Planning Updated by [id number]: Erick Mason on 06/25/18 9:[address] Patient Name: ELVIRA PADGETT Admission Status: Elective Accout number: [id number] Admission Date: 06-20-2018 : 1945 Admission Diagnosis: Attending: JUAN SALAS Current LOS: 5 Anticipated DC Date: 06-25-2018 Planned Disposition: Inpatient Rehab Primary Insurance: MEDICARE A & B PLANNED EXTERNAL PROVIDER: [facility] INPAT[facility] DCP follow-up note: CM FAXED REFERRAL UPDATE FOR REHAB SCREENING TO [phone]. CM WAITING SCREENING AND ADMISSION DETERMINATION FROM [facility] INPATIENT REH[facility]. SOFY Zhang DCP- Discharge Planning Updated by [id number]: Erick Mason on 06/22/18 3:[address] Patient Name: ELVIRA PADGETT Encounter No: [id number] : 1945 Primary Insurance: MEDICARE A & B Anticipated DC Date: 06-25-2018 Planned Disposition: Inpatient Rehab External Planned Provider: [facility] DCP follow-up note: CM RECEIVED ORDER FOR INPATIENT REHAB PRESCREENING. CM MET WITH PT AND SPOUSE IN ROOM TO DISCUSS DISCHARGE PLANNING AND NEEDS. CM DISCUSSED THERAPY RESULTS, ORDER AND AVAILABILITY OF REHAB PROVIDERS AND LOCATIONS. PT AND SPOUSE WOULD LIKE REFERRAL TO [facility] INPAT[facility] RE[facility] PT'S HOME IS ABOUT 6 [address]ES FROM THE FACILITY. PT'S SPOUSE AGAIN VOICED THAT PT IS STILL TOO SICK TO LEAVE AND NEEDS FURTHER TREATMENT. CM EXPLAINED IMPORTANTANCE OF DISCHARGE PLANNING AND PROCESS OF ASSESSMENT BY REHAB. PT AND SPOUSE BOTH IN AGREEMENT WITH REFERRAL TO [facility] INPATIENT RE[facility]. IMPORTANT MESSAGE FROM MEDICARE PROVIDED AND DISCUSSED. CM CALLED [facility], , SPOKE TO THAIS MONTES, WHO INFORMED CM THAT THEY WILL NOT HAVE A DOCTOR AVAILBLE FOR SCREENING UNTIL 06-25-18. CM FAXED REFERRAL FOR REHAB SCREENING TO [phone]. CM WAITING SCREENING AND ADMISSION DETERMINATION FROM [facility] ON 06-25-18. Erick Mason, CASE MANAGEMENT DCP- Discharge Planning Updated by [id number]: Erick Mason on 06/21/18 4:[address] Patient Name: ELVIRA PADGETT Admission Status: Elective Accout number: [id number] Admission Date: 06-20-2018 : 1945 Admission Diagnosis: Attending: JUAN SALAS Current LOS: 1 Anticipated DC Date: Planned Disposition: Home Primary Insurance: MEDICARE A & B Discharge Planning Comments: CM RECEIVED CALL FROM RENY OF [facility], , WHO LEFT MESSAGE INFORMING THAT PT WAS FROM [facility] AND ASKED FOR UPDATE. CM MET WITH PT AND SPOUSE IN ROOM TO DISCUSS DISCHARGE PLANNING AND NEEDS. ELVIRA PADGETT provided verbal consent to discuss current and ongoing needs with/in the presence of: SPOUSE, ANGÉLICA. PT REPORTS LIVING AT HOME INDEPENDENTLY WITH HER SPOUSE. PT HAS BEEN IN REHAB AT [facility] AND DOES NOT PLAN TO RETURN TO REHAB. PT HAS CANE AND WALKER AT HOME FROM [facility] [employer]. PT HAS NO OUTSIDE SERVICES ASSISTING IN THE HOME. CM DISCUSSED AVAILABILITY OF HOME HEALTH, REHAB SERVICES AND MEDICAL EQUIPMENT. PT DENIES DISCHARGE NEEDS AT THIS TIME, CM ASKED PT IF SHE WAS ABLE TO STAND AND WALK AT THIS TIME, PT DOES NOT THINK SHE CAN. CM EXPLAINED THAT IT MIGHT BE BEST TO KEEP REHAB OPTION OPEN, PT DECLINED AND AGAIN STATES SHE WILL BE GOING HOME AT DISCHARGE. PT'S SPOUSE REPORTS PT IS STILL SICK AND IT IS TOO EARLY TO TELL WHAT PT MIGHT NEED. SPOUSE REPORTS HE WILL BE TAKING PT HOME AT DISCHARGE. PT IS NOT RETURNING TO REHAB AT [facility]. PT PLANS TO DISCHARGE HOME WITH SPOUSE, HAS UNKNOWN DISCHARGE NEEDS AT THIS TIME. CM TO CONTINUE TO FOLLOW AND ASSIST NEEDED. Supervisor Modern Languages: Erick Mason DCPIA - Discharge Planning Initial Assessment Updated by [email or web address]: Erick Mason on 06/21/18 5:31 pm * Is the patient Alert and Oriented? Yes * How many steps to enter\\exit or inside your home? * PCP DR. LEYVA IN [place] * Pharmacy [facility] IN [place] OR [facility] * Preadmission Environment Correction Facility * Facility Name [facility] [phone] * ADLs Partial Dependent * Partial ADLs (Assistance needed) Ambulation Medication Management Transfers * Equipment Cane Walker * Other Equipment [facility] [place] * List name and contact numbers for known caregivers / representatives who currently or will assist patient after discharge: ANGÉLICA PADGETT, SPOUSE, ANGÉLICA PADGETT, SON, CATALINA PADGETT, DTR, * Verbal permission to speak to the caregivers and representatives has been obtained from the patient. Yes * Community resources currently utilized None * Please name any agencies selected above. NONE * Additional services required to return to the preadmission environment? Yes * Can the patient safely return to the preadmission environment? Yes * Has this patient been hospitalized within the prior 30 days at any hospital? Yes Coverage Notice Reviewer: [id number] - Erick Mason Notice Issued Date-Time: 06/22/2018 15:00 Notice Type: IM Discharge Notice Notice Delivered To: Family Member Relationship to Patient: Spouse Attendance Clerk Name: ANGÉLICA PADGETT Delivery Method: HAND - Hand Delivered Es Days: Prior Verbal Notification: Recipient Understood Notice: Yes Recipient Signature: Yes Med Rec Note Co-signed by Attending: Coverage Notice Comment: Last DP export: 06/26/18 9:52 a Patient Name: ELVIRA PADGETT Page 45554 at 1059 All edits/amendments must be made on the electronic document DICTATION DATE: 06/26/18 1059 BUILDING ECONOMIST: VINCENT 06/26/18 1059 RPT#: [id number] DC DATE: STATUS: ADM IN [facility] [address] [place] [address] END OF REPORT
--- NOTE | 2018-06-26 11:23 | MORECARE ---
CASE MANAGEMENT DISCHARGE SUMMARY PATIENT: ELVIRA PADGETT UNIT: [id number] ADM DATE: 06/20/18 AGE: 72 : 41 SEX: F ROOM/BED: D.2108 AUTHOR: KATHERIN,DOC PHYSICIAN: REFERRING PHYSICIAN: JUNA SALAS MD DATE OF SERVICE: 06/26/18 Discharge Plan Patient Name: ELVIRA PADGETT Facility: [facility]:[place] : 1945 Planned Disposition: Home with Home Health Anticipated Discharge Date: 06/26/18 Discharge Date: Expected LOS: 6 Initial Reviewer: [id number] Initial Review Date: 06/20/2018 Generated: 06/26/18 12:23 pm Comments DCP- Discharge Planning Updated by [id number]: Erick Mason on 06/26/18 10:[address] Patient Name: ELVIRA PADGTET Encounter No: [id number] : 1945 Primary Insurance: MEDICARE A & B Anticipated DC Date: 06-26-2018 Planned Disposition: Home with Home Health External Planned Provider: [facility] DCP follow-up note: CM MET WITH PT AND SPOUSE IN ROOM TO DISCUSS DISCHARGE PLANNING AND NEEDS. PT'S SPOUSE VERIFIED PLAN TO TAKE PT HOME TODAY. PT'S SPOUSE WANTED TO SEE THERAPY WORK WITH PT BEFORE MAKING FINAL DECISION. BELINDA WITH THERAPY WALKED PT IN ROOM AND AROUND NURSES STATION. PT AND SPOUSE AGREE WITH PLAN FOR DISCHARGE HOME WITH HOME HEALTH, SPOUSE REPORTS ABILITY TO CARE FOR PT AT HOME. CHOICE LISTING FOR HOME HEALTH AGENCIES PROVIDED, CHOICE FOR [facility] IN [facility] SIGNED. IMPORTANT MESSAGE FROM MEDICARE PROVIDED AND EXPLAINED. CM CALLED [facility] IN [place], , SPOKE TO BRYANT AND PROVIDED REFERRAL FOR HOME HEALTH. CM FAXED REFERRAL AND DISCHARGE INFORMATION TO [facility] AT [phone]. BRYANT WILL CONTACT DR. URIBE FOR HOME HEALTH ORDERS. BRYANT OF [facility] WILL CALL CM BACK WITH EITHER OK FROM PRIMARY CARE DOCTOR FOR HOME HEALTH OR FOR PT TO FOLLOW UP WITH DR. URIBE PRIOR TO HOME HEALTH ARRANGEMENTS. SOFY Zhang DCP- Discharge Planning Updated by [id number]: Erick Mason on 06/25/18 3:[address] Patient Name: ELVIRA PADGETT Encounter No: [id number] : 1945 Primary Insurance: MEDICARE A & B Anticipated DC Date: 06-25-2018 Planned Disposition: Home with Home Health External Planned Provider: TO BE DETERMINED DCP follow-up note: CM SPOKE TO MJ OF [facility] IN[facility]. INFORMED CM THAT SHE HAS SCREENED PT WHO SEEMS "WIPED OUT" AFTER WALKING IN THE [place] WITH THERAPY TODAY, PT'S SPOUSE DOES NOT THINK PT CAN PARTICIPATE IN THREE HOURS OF THERAPY PER DAY AND PLANS TO TAKE PT HOME AT DISCHARGE. MJ REPORTED THAT PT'S SPOUSE WANTS TO SPEAK TO THE DOCTOR BEFORE MAKING ANY FURTHER DECISIONS. MJ STATES THAT IF PT CAN PARTICIPATE IN THREE HOURS OF PROGRESSIVE THERAPY AND DECIDES SHE WANTS TO SCREEN FOR ADMISSION TO REHAB, TO PLEASE LET THEM KNOW. CM SPOKE TO PT IN ROOM. PT'S SPOUSE WAS NOT PRESENT. CM DISCUSSED ABOVE INFORMATION. PT REPORTS SHE WAS SLEEPING FOR MOST OF THE SCREENERS VISIT. SHE DOES NOT KNOW WHAT HER TOLD THE SCREENER BUT PT IS NOT SURE IF HE IS GOING TO BE ABLE TO LIFT HER AND TO ASSIST HER MUCH SHE NEEDS AT HOME. PT DOES NOT WANT TO GO TO LONG-TERM FACILITY BUT REPORTS SHE DOES NOT THINK THAT SHE HERSELF CAN DO THREE HOURS OF REQUIRED THERAPY PER DAY IN THE INPATIENT REHAB. CM DISCUSSED AVAILABILITY OF REHAB SERVICES, HOME HEALTH AND MEDICAL EQUIPMENT. CM EXPLAINED THAT MAYBE PT'S SPOUSE COULD ATTEMPT TO ASSIST PT IN ROOM WITH TRANSFER WHILE THERAPY WAS PRESENT TO TEST AND SEE IF GOING HOME WITH SPOUSE'S ASSISTANCE IS AN OPTION. PT WILL DISCUSS THIS WITH HER SPOUSE. PT WOULD LIKE TO DISCUSS DISCHARGE PLAN WITH HER SPOUSE AND WILL LET CM KNOW WHAT THEY WOULD LIKE TO DO. PT AND PT'S SPOUSE HAVE DECLINED LONG-TERM REHAB RETURN. PT'S SPOUSE DECLINED INPATIENT REHAB AT [facility]. PT'S SPOUSE WANTS TO SPEAK TO THE DOCTOR BEFORE MAKING ANY FURTHER DISCHARGE PLANNING DECISIONS. PT'S SPOUSE HAS STATED HE WILL BE TAKING PT HOME AT DISCHARGE. CM HAS OFFERED HOME HEALTH SERVICES. CM WAITING PT AND HER SPOUSE TO DISCUSS DISCHARGE PLAN AND NOTIFY CM OF NEEDS. Erick Mason, CASE MANAGEMENT DCP- Discharge Planning Updated by [id number]: Erick Mason on 06/25/18 9:[address] Patient Name: ELVIRA PADGETT Admission Status: Elective Accout number: [id number] Admission Date: 06-20-2018 : 1945 Admission Diagnosis: Attending: JUAN SALAS Current LOS: 5 Anticipated DC Date: 06-25-2018 Planned Disposition: Inpatient Rehab Primary Insurance: MEDICARE A & B PLANNED EXTERNAL PROVIDER: [facility] DCP follow-up note: CM FAXED REFERRAL UPDATE FOR REHAB SCREENING TO [phone]. CM WAITING SCREENING AND ADMISSION DETERMINATION FROM [facility] INPAT[facility]. SOFY Zhang MANAGEMENT DCP- Discharge Planning Updated by [id number]: Erick Mason on 06/22/18 3:[address] Patient Name: ELVIRA PADGETT Encounter No: [id number] : 1945 Primary Insurance: MEDICARE A & B Anticipated DC Date: 06-25-2018 Planned Disposition: Inpatient Rehab External Planned Provider: [facility] DCP follow-up note: CM RECEIVED ORDER FOR INPATIENT REHAB PRESCREENING. CM MET WITH PT AND SPOUSE IN ROOM TO DISCUSS DISCHARGE PLANNING AND NEEDS. CM DISCUSSED THERAPY RESULTS, ORDER AND AVAILABILITY OF REHAB PROVIDERS AND LOCATIONS. PT AND SPOUSE WOULD LIKE REFERRAL TO [facility] IN[facility] PT'S HOME IS ABOUT 6 [address] FROM THE FACILITY. PT'S SPOUSE AGAIN VOICED THAT PT IS STILL TOO SICK TO LEAVE AND NEEDS FURTHER TREATMENT. CM EXPLAINED IMPORTANTANCE OF DISCHARGE PLANNING AND PROCESS OF ASSESSMENT BY REHAB. PT AND SPOUSE BOTH IN AGREEMENT WITH REFERRAL TO [facility] INPAT[facility]. IMPORTANT MESSAGE FROM MEDICARE PROVIDED AND DISCUSSED. CM CALLED [facility], , SPOKE TO THAIS MONTES, WHO INFORMED CM THAT THEY WILL NOT HAVE A DOCTOR AVAILBLE FOR SCREENING UNTIL 06-25-18. CM FAXED REFERRAL FOR REHAB SCREENING TO [phone]. CM WAITING SCREENING AND ADMISSION DETERMINATION FROM [facility] IN[facility] ON 06-25-18. SOFY Zhang MANAGEMENT DCP- Discharge Planning Updated by [id number]: Erick Mason on 06/21/18 4:[address] Patient Name: ELVIRA PADGETT Admission Status: Elective Accout number: [id number] Admission Date: 06-20-2018 : 1945 Admission Diagnosis: Attending: JUAN SALAS Current LOS: 1 Anticipated DC Date: Planned Disposition: Home Primary Insurance: MEDICARE A & B Discharge Planning Comments: CM RECEIVED CALL FROM RENY OF [facility], , WHO LEFT MESSAGE INFORMING THAT [facility] AND ASKED FOR UPDATE. CM MET WITH PT AND SPOUSE IN ROOM TO DISCUSS DISCHARGE PLANNING AND NEEDS. ELVIRA PADGETT provided verbal consent to discuss current and ongoing needs with/in the presence of: SPOUSE, ANGÉLICA. PT REPORTS LIVING AT HOME INDEPENDENTLY WITH HER SPOUSE. PT HAS BEEN IN REHAB AT [facility] AND DOES NOT PLAN TO RETURN TO REHAB. PT HAS CANE AND WALKER AT HOME FROM [place] [employer]. PT HAS NO OUTSIDE SERVICES ASSISTING IN THE HOME. CM DISCUSSED AVAILABILITY OF HOME HEALTH, REHAB SERVICES AND MEDICAL EQUIPMENT. PT DENIES DISCHARGE NEEDS AT THIS TIME, CM ASKED PT IF SHE WAS ABLE TO STAND AND WALK AT THIS TIME, PT DOES NOT THINK SHE CAN. CM EXPLAINED THAT IT MIGHT BE BEST TO KEEP REHAB OPTION OPEN, PT DECLINED AND AGAIN STATES SHE WILL BE GOING HOME AT DISCHARGE. PT'S SPOUSE REPORTS PT IS STILL SICK AND IT IS TOO EARLY TO TELL WHAT PT MIGHT NEED. SPOUSE REPORTS HE WILL BE TAKING PT HOME AT DISCHARGE. PT IS NOT RETURNING TO REHAB AT [facility]. PT PLANS TO DISCHARGE HOME WITH SPOUSE, HAS UNKNOWN DISCHARGE NEEDS AT THIS TIME. CM TO CONTINUE TO FOLLOW AND ASSIST NEEDED. Contact Lens Curve Grinder: Erick Mason DCPIA - Discharge Planning Initial Assessment Updated by [id number]: Erick Mason on 06/21/18 5:31 pm * Is the patient Alert and Oriented? Yes * How many steps to enter\\exit or inside your home? * PCP DR. LEYVA IN [place] * Pharmacy [facility] IN [place] OR [facility] * Preadmission Environment Intermediate Facility * Facility Name [facility] [phone] * ADLs Partial Dependent * Partial ADLs (Assistance needed) Ambulation Medication Management Transfers * Equipment Cane Walker * Other Equipment [employer] IN [place] * List name and contact numbers for known caregivers / representatives who currently or will assist patient after discharge: ANGÉLICA PADGETT, SPOUSE, ANGÉLICA PADGETT, SON, CATALINA PADGETT, DTR, * Verbal permission to speak to the caregivers and representatives has been obtained from the patient. Yes * Community resources currently utilized None * Please name any agencies selected above. NONE * Additional services required to return to the preadmission environment? Yes * Can the patient safely return to the preadmission environment? Yes * Has this patient been hospitalized within the prior 30 days at any hospital? Yes Coverage Notice Reviewer: REESE Msaon Notice Issued Date-Time: 06/22/2018 15:00 Notice Type: IM Discharge Notice Notice Delivered To: Family Member Relationship to Patient: Spouse Publication Designer Name: ANGÉLICA PADGETT Delivery Method: HAND - Hand Delivered Es Days: Prior Verbal Notification: Recipient Understood Notice: Yes Recipient Signature: Yes Med Rec Note Co-signed by Attending: Coverage Notice Comment: Reviewer: REESE Mason Notice Issued Date-Time: 06/26/2018 10:35 Notice Type: Patient Choice Letter Notice Delivered To: Family Member Relationship to Patient: Spouse Publication Designer Name: ANGÉLICA PADGETT Delivery Method: HAND - Hand Delivered Es Days: Prior Verbal Notification: Recipient Understood Notice: Yes Recipient Signature: Yes Med Rec Note Co-signed by Attending: Coverage Notice Comment: TOBY ALICIA Reviewer: REESE Mason Notice Issued Date-Time: 06/26/2018 10:35 Notice Type: IM Discharge Notice Notice Delivered To: Family Member Relationship to Patient: Spouse Publication Designer Name: ANGÉLICA PADGETT Delivery Method: HAND - Hand Delivered Es Days: Prior Verbal Notification: Recipient Understood Notice: Yes Recipient Signature: Yes Med Rec Note Co-signed by Attending: Coverage Notice Comment: Last DP export: 06/26/18 9:59 a Patient Name: ELVIRA PADGETT Page 48313 at 1123 All edits/amendments must be made on the electronic document DICTATION DATE: 06/26/18 112 IRON CUTTER: VINCENT 06/26/18 1122 RPT#: [id number] DC DATE: STATUS: ADM IN [facility] [address] [place] [address] END OF REPORT
--- NOTE | 2018-06-26 11:31 | MORECARE ---
CASE MANAGEMENT DISCHARGE SUMMARY PATIENT: ELVIRA PADGETT UNIT: [id number] ADM DATE: 06/20/18 AGE: 72 : 43 SEX: F ROOM/BED: D.2107 AUTHOR: KATHERIN,DOC PHYSICIAN: REFERRING PHYSICIAN: JUAN SALAS MD DATE OF SERVICE: 06/26/18 Discharge Plan Patient Name: ELVIRA PADGETT Facility: [facility]:[place] : 1945 Planned Disposition: Home with Home Health Anticipated Discharge Date: 06/26/18 Discharge Date: Expected LOS: 6 Initial Reviewer: [id number] Initial Review Date: 06/20/2018 Generated: 06/26/18 12:31 pm Comments DCP- Discharge Planning Updated by [id number]: Erick Nathan on 06/26/18 10:[address] Patient Name: ELVIRA PADGETT Encounter No: [id number] : 1945 Primary Insurance: MEDICARE A & B Anticipated DC Date: 06-26-2018 Planned Disposition: Home with Home Health External Planned Provider: [facility] DCP follow-up note: CM MET WITH PT AND SPOUSE IN ROOM TO DISCUSS DISCHARGE PLANNING AND NEEDS. PT'S SPOUSE VERIFIED PLAN TO TAKE PT HOME TODAY. PT'S SPOUSE WANTED TO SEE THERAPY WORK WITH PT BEFORE MAKING FINAL DECISION. BELINDA WITH THERAPY WALKED PT IN ROOM AND AROUND NURSES STATION. PT AND SPOUSE AGREE WITH PLAN FOR DISCHARGE HOME WITH HOME HEALTH, SPOUSE REPORTS ABILITY TO CARE FOR PT AT HOME. CHOICE LISTING FOR HOME HEALTH AGENCIES PROVIDED, CHOICE FOR [facility] IN [facility] SIGNED. IMPORTANT MESSAGE FROM MEDICARE PROVIDED AND EXPLAINED. CM CALLED [facility] IN [place], , SPOKE TO BRYANT AND PROVIDED REFERRAL FOR HOME HEALTH. CM FAXED REFERRAL AND DISCHARGE INFORMATION TO [facility] AT [phone]. BRYATN WILL CONTACT DR. URIBE FOR HOME HEALTH ORDERS. BRYANT [facility] WILL CALL CM BACK WITH EITHER OK FROM PRIMARY CARE DOCTOR FOR HOME HEALTH OR FOR PT TO FOLLOW UP WITH DR. URIBE PRIOR TO HOME HEALTH ARRANGEMENTS. Erick Nathan, CASE MANAGEMENT Appended by Erick Nathan on 06/26/2018 11:23 CONSULTING HR PROFESSIONAL: CM RECEIVED CALL FROM BRYANT OF [facility], PT'S PRIMARY CARE DOCTOR WILL SIGN HOME HEALTH ORDERS, [facility] ACCEPTS FOR NEW HOME HEALTH SERVICES. SHE NATHAN, CASE MANAGEMENT DCP- Discharge Planning Updated by [id number]: Erick Nathan on 06/25/18 3:[address] Patient Name: ELVIRA PADGETT Encounter No: [id number] : 1945 Primary Insurance: MEDICARE A & B Anticipated DC Date: 06-25-2018 Planned Disposition: Home with Home Health External Planned Provider: TO BE DETERMINED DCP follow-up note: CM SPOKE TO THAIS OF [facility] INPATIENT REH[facility]. INFORMED CM THAT SHE HAS SCREENED PT WHO SEEMS "WIPED OUT" AFTER WALKING IN THE [place] WITH THERAPY TODAY, PT'S SPOUSE DOES NOT THINK PT CAN PARTICIPATE IN THREE HOURS OF THERAPY PER DAY AND PLANS TO TAKE PT HOME AT DISCHARGE. MJ REPORTED THAT PT'S SPOUSE WANTS TO SPEAK TO THE DOCTOR BEFORE MAKING ANY FURTHER DECISIONS. STATES THAT IF PT CAN PARTICIPATE IN THREE HOURS OF PROGRESSIVE THERAPY AND DECIDES SHE WANTS TO SCREEN FOR ADMISSION TO REHAB, TO PLEASE LET THEM KNOW. CM SPOKE TO PT IN ROOM. PT'S SPOUSE WAS NOT PRESENT. CM DISCUSSED ABOVE INFORMATION. PT REPORTS SHE WAS SLEEPING FOR MOST OF THE SCREENERS VISIT. SHE DOES NOT KNOW WHAT HER TOLD THE SCREENER BUT PT IS NOT SURE IF HE IS GOING TO BE ABLE TO LIFT HER AND TO ASSIST HER MUCH SHE NEEDS AT HOME. PT DOES NOT WANT TO GO TO DETENTION FACILITY BUT REPORTS SHE DOES NOT THINK THAT SHE HERSELF CAN DO THREE HOURS OF REQUIRED THERAPY PER DAY IN THE INPATIENT REHAB. CM DISCUSSED AVAILABILITY OF REHAB SERVICES, HOME HEALTH AND MEDICAL EQUIPMENT. CM EXPLAINED THAT MAYBE PT'S SPOUSE COULD ATTEMPT TO ASSIST PT IN ROOM WITH TRANSFER WHILE THERAPY WAS PRESENT TO TEST AND SEE IF GOING HOME WITH SPOUSE'S ASSISTANCE IS AN OPTION. PT WILL DISCUSS THIS WITH HER SPOUSE. PT WOULD LIKE TO DISCUSS DISCHARGE PLAN WITH HER SPOUSE AND WILL LET CM KNOW WHAT THEY WOULD LIKE TO DO. PT AND PT'S SPOUSE HAVE DECLINED DETENTION REHAB RETURN. PT'S SPOUSE DECLINED INPATIENT REHAB AT [facility]. PT'S SPOUSE WANTS TO SPEAK TO THE DOCTOR BEFORE MAKING ANY FURTHER DISCHARGE PLANNING DECISIONS. PT'S SPOUSE HAS STATED HE WILL BE TAKING PT HOME AT DISCHARGE. CM HAS OFFERED HOME HEALTH SERVICES. CM WAITING PT AND HER SPOUSE TO DISCUSS DISCHARGE PLAN AND NOTIFY CM OF NEEDS. Erick Nathan CASE MANAGEMENT DCP- Discharge Planning Updated by [id number]: Erick Nathan on 06/25/18 9:[address] Patient Name: ELVIRA PADGETT Admission Status: Elective Accout number: [id number] Admission Date: 06-20-2018 : 1945 Admission Diagnosis: Attending: JUAN SALAS Current LOS: 5 Anticipated DC Date: 06-25-2018 Planned Disposition: Inpatient Rehab Primary Insurance: MEDICARE A & B PLANNED EXTERNAL PROVIDER: [facility] INPAT[facility] DCP follow-up note: CM FAXED REFERRAL UPDATE FOR REHAB SCREENING TO [phone]. CM WAITING SCREENING AND ADMISSION DETERMINATION FROM [facility] REHAB. SOFY Zhang DCP- Discharge Planning Updated by [id number]: Erick Nathan on 06/22/18 3:[address] Patient Name: ELVIRA PADGETT Encounter No: [id number] : 1945 Primary Insurance: MEDICARE A & B Anticipated DC Date: 06-25-2018 Planned Disposition: Inpatient Rehab External Planned Provider: [facility] DCP follow-up note: CM RECEIVED ORDER FOR INPATIENT REHAB PRESCREENING. CM MET WITH PT AND SPOUSE IN ROOM TO DISCUSS DISCHARGE PLANNING AND NEEDS. CM DISCUSSED THERAPY RESULTS, ORDER AND AVAILABILITY OF REHAB PROVIDERS AND LOCATIONS. PT AND SPOUSE WOULD LIKE REFERRAL TO [facility] INPATIENT REH[facility] PT'S HOME IS ABOUT [address] FROM THE FACILITY. PT'S SPOUSE AGAIN VOICED THAT PT IS STILL TOO SICK TO LEAVE AND NEEDS FURTHER TREATMENT. CM EXPLAINED IMPORTANTANCE OF DISCHARGE PLANNING AND PROCESS OF ASSESSMENT BY REHAB. PT AND SPOUSE BOTH IN AGREEMENT WITH REFERRAL TO [facility] INPATIENT REH[facility]. IMPORTANT MESSAGE FROM MEDICARE PROVIDED AND DISCUSSED. CM CALLED [facility] INPAT[facility], , SPOKE TO THAIS MONTES, WHO INFORMED CM THAT THEY WILL NOT HAVE A DOCTOR AVAILBLE FOR SCREENING UNTIL 06-25-18. CM FAXED REFERRAL FOR REHAB SCREENING TO [phone]. CM WAITING SCREENING AND ADMISSION DETERMINATION FROM [facility] ON 06-25-18. Erick Nathan, CASE MANAGEMENT DCP- Discharge Planning Updated by [id number]: Erick Nathan on 06/21/18 4:[address] Patient Name: ELVIRA PADGETT Admission Status: Elective Accout number: [id number] Admission Date: 06-20-2018 : 1945 Admission Diagnosis: Attending: JUAN SALAS Current LOS: 1 Anticipated DC Date: Planned Disposition: Home Primary Insurance: MEDICARE A & B Discharge Planning Comments: CM RECEIVED CALL FROM RENY OF [facility], , WHO LEFT MESSAGE INFORMING THAT PT WAS FROM [facility] AND ASKED FOR UPDATE. CM MET WITH PT AND SPOUSE IN ROOM TO DISCUSS DISCHARGE PLANNING AND NEEDS. ELVIRA PADGETT provided verbal consent to discuss current and ongoing needs with/in the presence of: SPOUSE, ANGÉLICA. PT REPORTS LIVING AT HOME INDEPENDENTLY WITH HER SPOUSE. PT HAS BEEN IN REHAB AT [facility] AND DOES NOT PLAN TO RETURN TO REHAB. PT HAS CANE AND WALKER AT HOME FROM [place] [employer]. PT HAS NO OUTSIDE SERVICES ASSISTING IN THE HOME. CM DISCUSSED AVAILABILITY OF HOME HEALTH, REHAB SERVICES AND MEDICAL EQUIPMENT. PT DENIES DISCHARGE NEEDS AT THIS TIME, CM ASKED PT IF SHE WAS ABLE TO STAND AND WALK AT THIS TIME, PT DOES NOT THINK SHE CAN. CM EXPLAINED THAT IT MIGHT BE BEST TO KEEP REHAB OPTION OPEN, PT DECLINED AND AGAIN STATES SHE WILL BE GOING HOME AT DISCHARGE. PT'S SPOUSE REPORTS PT IS STILL SICK AND IT IS TOO EARLY TO TELL WHAT PT MIGHT NEED. SPOUSE REPORTS HE WILL BE TAKING PT HOME AT DISCHARGE. PT IS NOT RETURNING TO REHAB AT [facility]. PT PLANS TO DISCHARGE HOME WITH SPOUSE, HAS UNKNOWN DISCHARGE NEEDS AT THIS TIME. CM TO CONTINUE TO FOLLOW AND ASSIST NEEDED. Customer Resource Specialist: Erick Nathan DCPIA - Discharge Planning Initial Assessment Updated by [id number]: Erick Nathan on 06/21/18 5:31 pm * Is the patient Alert and Oriented? Yes * How many steps to enter\\exit or inside your home? * PCP DR. LEYVA IN [place] * Pharmacy [facility] IN [place] OR [facility] * Preadmission Environment Fci Facility * Facility Name [facility] [phone] * ADLs Partial Dependent * Partial ADLs (Assistance needed) Ambulation Medication Management Transfers * Equipment Cane Walker * Other Equipment [employer] IN [place] * List name and contact numbers for known caregivers / representatives who currently or will assist patient after discharge: ANGÉLICA PADGETT, SPOUSE, ANGÉLICA PADGETT, SON, CATALINA PADGETT, DTR, * Verbal permission to speak to the caregivers and representatives has been obtained from the patient. Yes * Community resources currently utilized None * Please name any agencies selected above. NONE * Additional services required to return to the preadmission environment? Yes * Can the patient safely return to the preadmission environment? Yes * Has this patient been hospitalized within the prior 30 days at any hospital? Yes Coverage Notice Reviewer: REESE aNthan Notice Issued Date-Time: 06/22/2018 15:00 Notice Type: IM Discharge Notice Notice Delivered To: Family Member Relationship to Patient: Spouse Senior Trainer Name: ANGÉLICA PADGETT Delivery Method: HAND - Hand Delivered Es Days: Prior Verbal Notification: Recipient Understood Notice: Yes Recipient Signature: Yes Med Rec Note Co-signed by Attending: Coverage Notice Comment: Reviewer: REESE Nathan Notice Issued Date-Time: 06/26/2018 10:35 Notice Type: Patient Choice Letter Notice Delivered To: Family Member Relationship to Patient: Spouse Senior Trainer Name: ANGÉLICA PADGETT Delivery Method: HAND - Hand Delivered Es Days: Prior Verbal Notification: Recipient Understood Notice: Yes Recipient Signature: Yes Med Rec Note Co-signed by Attending: Coverage Notice Comment: [facility] Reviewer: [id number] Nathan Notice Issued Date-Time: 06/26/2018 10:35 Notice Type: IM Discharge Notice Notice Delivered To: Family Member Relationship to Patient: Spouse Senior Trainer Name: ANGÉLICA PADGETT Delivery Method: HAND - Hand Delivered Es Days: Prior Verbal Notification: Recipient Understood Notice: Yes Recipient Signature: Yes Med Rec Note Co-signed by Attending: Coverage Notice Comment: Last DP export: 06/26/18 10:23 a Patient Name: ELVIRA PADGETT Page 02326 at 1131 All edits/amendments must be made on the electronic document DICTATION DATE: 06/26/18 1131 END FINDER FORMING DEPARTMENT: VINCENT 06/26/18 1131 RPT#: [id number] [place] DATE: STATUS: ADM IN [facility] [address] [place] [address] END OF REPORT
--- NOTE | 2018-06-26 11:36 | NUR ---
PAGE INTO [facility] APN TO SEE ABOUT TAKING THE [facility] OF THE DISCHARGE MEDICATIONS SO THAT THEY CAN GET BACK TO [place]. AWAITING CALL BACK.
--- NOTE | 2018-06-26 12:39 | NUR ---
PER LAB, PATIENT REFUSED TO HAVE HER BLOOD DRAWN AGAIN FOR THE POTASSIUM RE-CHECK. PER PATIENT AND SPOUSE, IT WAS ALREADY DRAWN AND THE RE-DRAW WAS BECAUSE THE TUBE GOT LOST IN ROUTE TO THE LAB.
--- NOTE | 2018-06-26 13:01 | NUR ---
SALINE LOCK REMOVED WITH CATH TIP INTACT. VERBAL AND WRITTEN DISCHARGE INSTRUCTIONS GIVEN TO BOTH PATIENT AND SPOUSE. THEY ARE INSTRUCTED TO NOT OBSTETRICS GYNECOLOGY PHYSICIAN THE KEPPRA.
[2018-06-26 13:06] VITALS: BP 146/42
--- NOTE | 2018-06-26 16:07 | MORECARE ---
CASE MANAGEMENT DISCHARGE SUMMARY PATIENT: ELVIRA PADGETT UNIT: [id number] ADM DATE: 06/20/18 AGE: 72 : 41 SEX: F ROOM/BED: D.210 AUTHOR: KATHERIN,DOC PHYSICIAN: REFERRING PHYSICIAN: JUAN SALAS MD DATE OF SERVICE: 06/26/18 Discharge Plan Patient Name: ELVIRA PADGETT Facility[facility]:[place] : 1945 Planned Disposition: Home with Home Health Anticipated Discharge Date: 06/26/18 Discharge Date: 06/26/2018 Expected LOS: 6 Initial Reviewer: [id number] Initial Review Date: 06/20/2018 Generated: 06/26/18 5:06 pm Comments DCP- Discharge Planning Updated by [email or web address]: Erick Nathan on 06/26/18 10:[address] Patient Name: ELVIRA PADGETT Encounter No: [id number] : 1945 Primary Insurance: MEDICARE A & B Anticipated DC Date: 06-26-2018 Planned Disposition: Home with Home Health External Planned Provider: [facility] DCP follow-up note: CM MET WITH PT AND SPOUSE IN ROOM TO DISCUSS DISCHARGE PLANNING AND NEEDS. PT'S SPOUSE VERIFIED PLAN TO TAKE PT HOME TODAY. PT'S SPOUSE WANTED TO SEE THERAPY WORK WITH PT BEFORE MAKING FINAL DECISION. BELINDA WITH THERAPY WALKED PT IN ROOM AND AROUND NURSES STATION. PT AND SPOUSE AGREE WITH PLAN FOR DISCHARGE HOME WITH HOME HEALTH, SPOUSE REPORTS ABILITY TO CARE FOR PT AT HOME. CHOICE LISTING FOR HOME HEALTH AGENCIES PROVIDED, CHOICE FOR [facility] IN [facility] SIGNED. IMPORTANT MESSAGE FROM MEDICARE PROVIDED AND EXPLAINED. CM CALLED [facility] IN [place], , SPOKE TO BRYANT AND PROVIDED REFERRAL FOR HOME HEALTH. CM FAXED REFERRAL AND DISCHARGE INFORMATION TO [facility] AT [phone]. BRYANT WILL CONTACT DR. URIBE FOR HOME HEALTH ORDERS. BRYANT OF [facility] WILL CALL CM BACK WITH EITHER OK FROM PRIMARY CARE DOCTOR FOR HOME HEALTH OR FOR PT TO FOLLOW UP WITH DR. URIBE PRIOR TO HOME HEALTH ARRANGEMENTS. Erick Nathan, CASE MANAGEMENT Appended by Erick Nathan on 06/26/2018 11:23 TUBE HANDLER: CM RECEIVED CALL FROM BRYANT OF [facility], PT'S PRIMARY CARE DOCTOR WILL SIGN HOME HEALTH ORDERS, [facility] ACCEPTS FOR NEW HOME HEALTH SERVICES. SHE NATHAN, CASE MANAGEMENT DCP- Discharge Planning Updated by [id number]: Erick Nathan on 06/25/18 3:[address] Patient Name: ELVIRA PADGETT Encounter No: [id number] : 1945 Primary Insurance: MEDICARE A & B Anticipated DC Date: 06-25-2018 Planned Disposition: Home with Home Health External Planned Provider: TO BE DETERMINED DCP follow-up note: CM SPOKE TO THAIS OF [facility] [facility]. INFORMED CM THAT SHE HAS SCREENED PT WHO SEEMS "WIPED OUT" AFTER WALKING IN THE [place] WITH THERAPY TODAY, PT'S SPOUSE DOES NOT THINK PT CAN PARTICIPATE IN THREE HOURS OF THERAPY PER DAY AND PLANS TO TAKE PT HOME AT DISCHARGE. MJ REPORTED THAT PT'S SPOUSE WANTS TO SPEAK TO THE DOCTOR BEFORE MAKING ANY FURTHER DECISIONS. STATES THAT IF PT CAN PARTICIPATE IN THREE HOURS OF PROGRESSIVE THERAPY AND DECIDES SHE WANTS TO SCREEN FOR ADMISSION TO REHAB, TO PLEASE LET THEM KNOW. CM SPOKE TO PT IN ROOM. PT'S SPOUSE WAS NOT PRESENT. CM DISCUSSED ABOVE INFORMATION. PT REPORTS SHE WAS SLEEPING FOR MOST OF THE SCREENERS VISIT. SHE DOES NOT KNOW WHAT HER TOLD THE SCREENER BUT PT IS NOT SURE IF HE IS GOING TO BE ABLE TO LIFT HER AND TO ASSIST HER MUCH SHE NEEDS AT HOME. PT DOES NOT WANT TO GO TO RETIREMENT FACILITY BUT REPORTS SHE DOES NOT THINK THAT SHE HERSELF CAN DO THREE HOURS OF REQUIRED THERAPY PER DAY IN THE INPATIENT REHAB. CM DISCUSSED AVAILABILITY OF REHAB SERVICES, HOME HEALTH AND MEDICAL EQUIPMENT. CM EXPLAINED THAT MAYBE PT'S SPOUSE COULD ATTEMPT TO ASSIST PT IN ROOM WITH TRANSFER WHILE THERAPY WAS PRESENT TO TEST AND SEE IF GOING HOME WITH SPOUSE'S ASSISTANCE IS AN OPTION. PT WILL DISCUSS THIS WITH HER SPOUSE. PT WOULD LIKE TO DISCUSS DISCHARGE PLAN WITH HER SPOUSE AND WILL LET CM KNOW WHAT THEY WOULD LIKE TO DO. PT AND PT'S SPOUSE HAVE DECLINED RETIREMENT REHAB RETURN. PT'S SPOUSE DECLINED INPATIENT REHAB AT [facility] [place]. PT'S SPOUSE WANTS TO SPEAK TO THE DOCTOR BEFORE MAKING ANY FURTHER DISCHARGE PLANNING DECISIONS. PT'S SPOUSE HAS STATED HE WILL BE TAKING PT HOME AT DISCHARGE. CM HAS OFFERED HOME HEALTH SERVICES. CM WAITING PT AND HER SPOUSE TO DISCUSS DISCHARGE PLAN AND NOTIFY CM OF NEEDS. SOFY Zhang MANAGEMENT DCP- Discharge Planning Updated by [id number]: Erick Nathan on 06/25/18 9:[address] Patient Name: ELVIRA PADGETT Admission Status: Elective Accout number: [id number] Admission Date: 06-20-2018 : 1945 Admission Diagnosis: Attending: JUAN SALAS Current LOS: 5 Anticipated DC Date: 06-25-2018 Planned Disposition: Inpatient Rehab Primary Insurance: MEDICARE A & B PLANNED EXTERNAL PROVIDER: [facility] DCP follow-up note: CM FAXED REFERRAL UPDATE FOR REHAB SCREENING TO [phone]. CM WAITING SCREENING AND ADMISSION DETERMINATION FROM [facility]. SOFY Zhang DCP- Discharge Planning Updated by [id number]: Erick Nathan on 06/22/18 3:[address] Patient Name: ELVIRA PADGETT Encounter No: [id number] : 1945 Primary Insurance: MEDICARE A & B Anticipated DC Date: 06-25-2018 Planned Disposition: Inpatient Rehab External Planned Provider: [facility] DCP follow-up note: CM RECEIVED ORDER FOR INPATIENT REHAB PRESCREENING. CM MET WITH PT AND SPOUSE IN ROOM TO DISCUSS DISCHARGE PLANNING AND NEEDS. CM DISCUSSED THERAPY RESULTS, ORDER AND AVAILABILITY OF REHAB PROVIDERS AND LOCATIONS. PT AND SPOUSE WOULD LIKE REFERRAL TO [facility] PT'S HOME IS ABOUT 6 [address]ES FROM THE FACILITY. PT'S SPOUSE AGAIN VOICED THAT PT IS STILL TOO SICK TO LEAVE AND NEEDS FURTHER TREATMENT. CM EXPLAINED IMPORTANTANCE OF DISCHARGE PLANNING AND PROCESS OF ASSESSMENT BY REHAB. PT AND SPOUSE BOTH IN AGREEMENT WITH REFERRAL TO [facility]. IMPORTANT MESSAGE FROM MEDICARE PROVIDED AND DISCUSSED. CM CALLED [facility], , SPOKE TO THAIS MONTES, WHO INFORMED CM THAT THEY WILL NOT HAVE A DOCTOR AVAILBLE FOR SCREENING UNTIL 06-25-18. CM FAXED REFERRAL FOR REHAB SCREENING TO [phone]. CM WAITING SCREENING AND ADMISSION DETERMINATION FROM [facility] ON 06-25-18. Erick Nathan, CASE MANAGEMENT DCP- Discharge Planning Updated by [id number]: Erick Nathan on 06/21/18 4:[address] Patient Name: ELVIRA PADGETT Admission Status: Elective Accout number: [id number] Admission Date: 06-20-2018 : 1945 Admission Diagnosis: Attending: JUAN SALAS Current LOS: 1 Anticipated DC Date: Planned Disposition: Home Primary Insurance: MEDICARE A & B Discharge Planning Comments: CM RECEIVED CALL FROM RENY OF [facility], , WHO LEFT MESSAGE INFORMING THAT PT WAS FROM [facility] AND ASKED FOR UPDATE. CM MET WITH PT AND SPOUSE IN ROOM TO DISCUSS DISCHARGE PLANNING AND NEEDS. ELVIRA PADGETT provided verbal consent to discuss current and ongoing needs with/in the presence of: SPOUSE, ANGÉLICA. PT REPORTS LIVING AT HOME INDEPENDENTLY WITH HER SPOUSE. PT HAS BEEN IN REHAB AT [facility] AND DOES NOT PLAN TO RETURN TO REHAB. PT HAS CANE AND WALKER AT HOME FROM [place] [employer]. PT HAS NO OUTSIDE SERVICES ASSISTING IN THE HOME. CM DISCUSSED AVAILABILITY OF HOME HEALTH, REHAB SERVICES AND MEDICAL EQUIPMENT. PT DENIES DISCHARGE NEEDS AT THIS TIME, CM ASKED PT IF SHE WAS ABLE TO STAND AND WALK AT THIS TIME, PT DOES NOT THINK SHE CAN. CM EXPLAINED THAT IT MIGHT BE BEST TO KEEP REHAB OPTION OPEN, PT DECLINED AND AGAIN STATES SHE WILL BE GOING HOME AT DISCHARGE. PT'S SPOUSE REPORTS PT IS STILL SICK AND IT IS TOO EARLY TO TELL WHAT PT MIGHT NEED. SPOUSE REPORTS HE WILL BE TAKING PT HOME AT DISCHARGE. PT IS NOT RETURNING TO REHAB AT [facility]. PT PLANS TO DISCHARGE HOME WITH SPOUSE, HAS UNKNOWN DISCHARGE NEEDS AT THIS TIME. CM TO CONTINUE TO FOLLOW AND ASSIST NEEDED. Field Representatives Director: Erick Nathan DCPIA - Discharge Planning Initial Assessment Updated by [email or web address]: Erick Nathan on 06/21/18 5:31 pm * Is the patient Alert and Oriented? Yes * How many steps to enter\\exit or inside your home? * PCP DR. LEYVA IN [place] * Pharmacy [facility] IN [place] OR [facility] * Preadmission Environment [facility] * Facility Name [facility] [phone] * ADLs Partial Dependent * Partial ADLs (Assistance needed) Ambulation Medication Management Transfers * Equipment Cane Walker * Other Equipment [facility] IN [place] * List name and contact numbers for known caregivers / representatives who currently or will assist patient after discharge: ANGÉLICA PADGETT, SPOUSE, ANGÉLICA PADGETT, SON, CATALINA PADGETT, DTR, * Verbal permission to speak to the caregivers and representatives has been obtained from the patient. Yes * Community resources currently utilized None * Please name any agencies selected above. NONE * Additional services required to return to the preadmission environment? Yes * Can the patient safely return to the preadmission environment? Yes * Has this patient been hospitalized within the prior 30 days at any hospital? Yes Coverage Notice Reviewer: [id number] Nathan Notice Issued Date-Time: 06/22/2018 15:00 Notice Type: IM Discharge Notice Notice Delivered To: Family Member Relationship to Patient: Spouse Real Estate Closing Coordinator Name: ANGÉLICA PADGETT Delivery Method: HAND - Hand Delivered Es Days: Prior Verbal Notification: Recipient Understood Notice: Yes Recipient Signature: Yes Med Rec Note Co-signed by Attending: Coverage Notice Comment: Reviewer: REESE Nathan Notice Issued Date-Time: 06/26/2018 10:35 Notice Type: Patient Choice Letter Notice Delivered To: Family Member Relationship to Patient: Spouse Real Estate Closing Coordinator Name: ANGÉLICA PADGETT Delivery Method: HAND - Hand Delivered Es Days: Prior Verbal Notification: Recipient Understood Notice: Yes Recipient Signature: Yes Med Rec Note Co-signed by Attending: Coverage Notice Comment: [facility] Reviewer: [id number] Nathan Notice Issued Date-Time: 06/26/2018 10:35 Notice Type: IM Discharge Notice Notice Delivered To: Family Member Relationship to Patient: Spouse Real Estate Closing Coordinator Name: ANGÉLICA PADGETT Delivery Method: HAND - Hand Delivered Es Days: Prior Verbal Notification: Recipient Understood Notice: Yes Recipient Signature: Yes Med Rec Note Co-signed by Attending: Coverage Notice Comment: Last DP export: 06/26/18 10:31 a Patient Name: ELVIRA PADGETT Page [id number] at 1607 All edits/amendments must be made on the electronic document DICTATION DATE: 06/26/181605 FERMENTER CHAMPAGNE: VINCENT 06/26/18 1606 RPT#: [id number] DC DATE:06/26/18 STATUS: DIS IN [facility] [address] [place] [address] END OF REPORT
== END 2018-06-26 13:25 | disposition home health service (06) | DRG 689 ==
LOC: D.M2 18:47
PROVIDERS: Radiology Diagnostic Radiology; ADMIT Internal Medicine Nephrology
PROC: 009U3ZZ Drainage of Spinal Canal, Percutaneous Approach (ICD-10-PCS; principal; 2018-06-20)
PROC: B01B1ZZ Fluoroscopy of Spinal Cord using Low Osmolar Contrast (ICD-10-PCS; 2018-06-20)
DX: N39.0 Urinary tract infection, site not specified (principal); G93.41 Metabolic encephalopathy; N17.9 Acute kidney failure, unspecified; I10 Essential (primary) hypertension; E11.9 Type 2 diabetes mellitus without complications; E78.5 Hyperlipidemia, unspecified; N20.0 Calculus of kidney; M19.90 Unspecified osteoarthritis, unspecified site; F41.9 Anxiety disorder, unspecified; R32 Unspecified urinary incontinence; D25.9 Leiomyoma of uterus, unspecified; N28.1 Cyst of kidney, acquired; Z87.440 Personal history of urinary (tract) infections